=== PATIENT | male | born 1960 | race Caucasian/White ===

== ENCOUNTER 2020-06-19 09:27 | Inpatient (IN) | payer MEDICARE, OTHER ==
[~2020-06-19] VITALS: Ht 157.5 cm; Wt 60.3 kg
--- NOTE | 2020-06-19 10:01 | NUR ---
ble edema x 2 weeks, taking lasix x 10 days now. also c/o abdomional distension. On room air, breathing evenly and unlabored. Kept comfortable, will continue to monitor accordingly.
[2020-06-19 10:03] LABS: BASOPHILS # (AUTO) 0.1 /CMM (0.0-0.2); BASOPHILS % (AUTO) 0.4 % (0.0-2.0); EOSINOPHILS % (AUTO) 1.4 % (0.0-6.0); HEMATOCRIT 36 % (39-51); HEMOGLOBIN 11.7 g/dL (13.5-17.5); LYMPHOCYTES # (AUTO) 2.1 /CMM (0.8-4.8); MEAN CORPUSCULAR HGB CONC 33 g/dl (31.0-36.0); MEAN CORPUSCULAR VOLUME 104 fL (80-96); MONOCYTES # (AUTO) 1.9 /CMM (0.1-1.30); MONOCYTES % (AUTO) 10.6 % (2.0-12.0); NEUTROPHILS # (AUTO) 13.2 /CMM (1.8-8.9); NEUTROPHILS % (AUTO) 75.6 % (43.0-81.0); PLATELET COUNT (AUTO) 248 /CMM (150-450); RED BLOOD CELL COUNT(AUTO) 3.44 MIL/uL (4.5-6.0); WHITE BLOOD COUNT (AUTO) 17.5 K/uL (4.3-11.0)
[2020-06-19 10:14] LABS: ALANINE AMINOTRANSFERASE 24 U/L (12-78); ALBUMIN 2.3 g/dL (3.4-5.0); ALKALINE PHOSPHATASE 265 U/L (46-116); ASPARTATE AMINOTRANSFERASE 89 U/L (15-37); BILIRUBIN,DIRECT 1.1 mg/dL (0.0-0.2); BILIRUBIN,TOTAL 1.3 mg/dL (0.2-1.0); CALCIUM, SERUM 8.2 mg/dL (8.5-10.1); CARBON DIOXIDE 26 mmol/L (21-32); CHLORIDE 105 mmol/L (98-107); CREATININE 1.1 mg/dL (0.6-1.3); GLUCOSE 110 mg/dL (74-106); SODIUM SERUM 142 mmol/L (136-145); TOTAL PROTEIN, SERUM 7.5 g/dL (6.4-8.2); UREA NITROGEN, BLOOD 6 mg/dL (7-18)
[2020-06-19 10:15] LABS: POTASSIUM 2.4 mmol/L (3.5-5.1)
--- NOTE | 2020-06-19 10:27 | NUR ---
PANEL ON-CALL PAGED
[2020-06-19] MEDS ORDERED: CEFTRIAXONE 1GM BAG (ER ONLY) 50 ML IV ONE (10:29)
[2020-06-19] MEDS ORDERED: POTASSIUM CL. PREMIX PERIPHER. 200 ML ONE (10:29)
[2020-06-19] MEDS ORDERED: TRAZ150T75 PO (10:30)
[2020-06-19] MEDS ORDERED: OMEG1CAP55 PO (10:30)
[2020-06-19] MEDS ORDERED: MAGN400T26 PO (10:30)
[2020-06-19] MEDS ORDERED: FOLI0.4T6 PO (10:30)
[2020-06-19] MEDS ORDERED: CEFTRIAXONE 1GM BAG (ER ONLY) 1 GM/50 ML PIGGYBACK IV ONE (10:30)
[2020-06-19] MEDS: POTASSIUM CL. PREMIX PERIPHER. 50 ML IV SCH ×4 (10:30→14:13)
[2020-06-19] MEDS ORDERED: AMLO-213 PO (10:30)
[2020-06-19] MEDS ORDERED: FURO20TA4 PO (10:30)
[2020-06-19] MEDS ORDERED: MELO-105 PO (10:30)
[2020-06-19] MEDS ORDERED: ARIP5TAB59 PO (10:30)
[2020-06-19] MEDS ORDERED: POTA20TA83 PO (10:30)
--- NOTE | 2020-06-19 10:50 | NUR ---
MOVE SHEET SUBMITTED AND CALLED FOR TELE BED.
--- NOTE | 2020-06-19 10:55 | NUR ---
patient signed consent for ultrasound guided paracenthesis.
--- NOTE | 2020-06-19 11:01 | NUR ---
room 112-1
[2020-06-19] MEDS ORDERED: HYDROCODONE/APAP 5/325MG TABLET PO PRN (11:30)
[2020-06-19] MEDS ORDERED: ONDANSETRON HCL/PF 4 MG/2 ML VIAL IVP PRN (11:30)
[2020-06-19] MEDS ORDERED: MORPHINE SULFATE INJ 2 MG/ML DISP.SYRIN IV PRN (11:30)
[2020-06-19] MEDS ORDERED: MAGNESIUM HYDROXIDE 30 ML UDC PO PRN (11:30)
[2020-06-19] MEDS ORDERED: MAG HYDROX/AL HYDROX/SIMETH 30 ML UDC PO PRN (11:30)
[2020-06-19] MEDS ORDERED: ALBUMIN 25% 12.5 GM/50 ML BOTTLE IV ONE (11:30)
[2020-06-19] MEDS ORDERED: ACETAMINOPHEN 325 MG TABLET PO PRN (11:30)
[2020-06-19] MEDS ORDERED: ALBUMIN 25% 50 ML IV ONE (11:33)
--- NOTE | 2020-06-19 11:45 | NUR ---
s/p paracenthesis, body fluids sent to lab
--- NOTE | 2020-06-19 11:58 | NUR ---
LAB CALLED PT COVID RESULT NEGATIVE (-)
[2020-06-19 12:15] VITALS: BP 159/81
--- NOTE | 2020-06-19 12:17 | NUR ---
wheeled patient via gurney accompanied by RN and emt in no distress. RN assigned to patient at bedside to assume care.
[2020-06-19] MEDS: THIAMINE HCL 100 MG TABLET PO SCH (12:27)
[2020-06-19] MEDS: MULTIVITAMINS,THERAGRAN 1 UDTAB TABLET PO SCH (12:27)
[2020-06-19] MEDS: FOLIC ACID 1 MG TABLET PO SCH (12:27)
--- NOTE | 2020-06-19 12:30 | NUR ---
RN NOTE RECEIVED REPORT FROM TOM CARDONA. PATIENT IS CURRENTLY IN NO DISTRESS ON ROOM AIR. WILL CONTINUE TO MONITOR.
[2020-06-19 16:00] VITALS: BP 117/74
[2020-06-19] MEDS ORDERED: IOHEXOL-350 100 ML VIAL IV ONE (16:16)
[2020-06-19] MEDS ORDERED: IV NS 0.9% 0 ML IV ONE (16:17)
--- NOTE | 2020-06-19 16:32 | NUR ---
RN NOTE PATIENT IS REFUSING CT OF ABDOMEN PELVIS WWO CONTRAST. EXPLAINED PROCEDURE TO PATIENT AND THE BENEFITS OF HAVING IT PERFORMED. PATIENT STILL REFUSED.
--- NOTE | 2020-06-19 17:30 | NUR ---
RN NOTE UA COLLECTED. AWAITING LAB PRINT DEVELOPER AUTOMATIC.
--- NOTE | 2020-06-19 18:39 | NUR ---
RN CLOSING NOTE PATIENT IS CURRENTLY IN BED WITH HOB AT SEMI FOWLERS POSITION. PATIENT IS ON ROOM AIR WITH NO SIGNS OF LABORED BREATHING. PATIENT IS AOX4. LOWER EXTREMITY EDEMA AND RIGHT FOOT SKIN TEAR NOTED. LAC #18 AND RAC #18 ARE PATENT AND INTACT. BED IS LOCKED IN THE LOWEST POSITION, 3 GUARD RAILS RAISED, CALL REYES WITHIN REACH, AND ALL HOSPITAL SAFETY PRECAUTIONS ARE BEING FOLLOWED. ALL DUE MEDS GIVEN AND PATIENT REMAINED STABLE THROUGHOUT SHIFT. WILL ENDORSE TO GUARD CAPTAIN RN FOR OSITO.
[2020-06-19 20:00] VITALS: BP 100/57
[2020-06-19 20:33] LABS: BILIRUBIN,URINE SMALL (NEGATIVE); COLOR,URINE YELLOW (YELLOW); LEUKOCYTE ESTERASE ,URINE NEGATIVE (NEGATIVE); NITRITE, URINE NEGATIVE (NEGATIVE); PROTEIN,URINE NEGATIVE (NEGATIVE); UGLUCOSE NEGATIVE (NEGATIVE); UROBILINOGEN,URINE 0.2 EU/dL (0.2)
[2020-06-19 20:41] LABS: BACTERIA,URINE 3+ /HPF (None Seen); RBC,URINE 0-2 /HPF (0-2); SQUAMOUS EPITHELIAL CELL,UR Few /HPF (None Seen); WBC,URINE 0-2 /HPF (0-3)
[2020-06-19 20:42] LABS: URINE AMORPHOUS URATE Few /HPF (None Seen)
[2020-06-20] VITALS (7 sets, daily range): BP systolic 98–131; BP diastolic 58–75
[2020-06-20 06:18] LABS: BASOPHILS # (AUTO) 0.2 /CMM (0.0-0.2); BASOPHILS % (AUTO) 1.4 % (0.0-2.0); EOSINOPHILS % (AUTO) 2.4 % (0.0-6.0); HEMATOCRIT 34 % (39-51); HEMOGLOBIN 11.1 g/dL (13.5-17.5); LYMPHOCYTES # (AUTO) 1.8 /CMM (0.8-4.8); LYMPHOCYTES % (AUTO) 12.7 % (20.0-44.0); MEAN CORPUSCULAR HGB CONC 32 g/dl (31.0-36.0); MEAN CORPUSCULAR VOLUME 105 fL (80-96); MONOCYTES # (AUTO) 1.3 /CMM (0.1-1.30); MONOCYTES % (AUTO) 9.3 % (2.0-12.0); NEUTROPHILS # (AUTO) 10.2 /CMM (1.8-8.9); NEUTROPHILS % (AUTO) 74.2 % (43.0-81.0); PLATELET COUNT (AUTO) 219 /CMM (150-450); RED BLOOD CELL COUNT(AUTO) 3.25 MIL/uL (4.5-6.0); WHITE BLOOD COUNT (AUTO) 13.8 K/uL (4.3-11.0)
--- NOTE | 2020-06-20 07:45 | NUR ---
CLAY MINE CUTTING MACHINE OPERATOR NOTE PATIENT IN BED , PATIENT IS ON ROOM AIR WITH NO SIGNS OF LABORED BREATHING. PATIENT IS AOX4. LOWER EXTREMITY EDEMA ,KEEP ELEVATED TOLERATED, RT AC HL INTACT AND AND FLUSHED WELL . BED IS LOCKED IN THE LOWEST POSITION, 3, CALL REYES WITHIN REACH, AND ALL HOSPITAL SAFETY PRECAUTIONS IMPLEMENTED , CALL LIGHT WITHIN REACH
[2020-06-20 07:56] LABS: BILIRUBIN,DIRECT 1.1 mg/dL (0.0-0.2); BILIRUBIN,TOTAL 1.6 mg/dL (0.2-1.0); CALCIUM, SERUM 7.9 mg/dL (8.5-10.1); CREATININE 0.7 mg/dL (0.6-1.3); MAGNESIUM 1.6 mg/dL (1.8-2.4); PHOSPHORUS 2.2 mg/dL (2.5-4.9); TOTAL PROTEIN, SERUM 6.3 g/dL (6.4-8.2)
[2020-06-20 07:59] LABS: POTASSIUM 2.4 mmol/L (3.5-5.1)
--- NOTE | 2020-06-20 08:04 | NUR ---
WOUND CARE CONSULT: PT SEEN FOR RT FOOT HEALED AREA, PRESENT ON ADMISSION. PT STATES THAT HE PREVIOUSLY SCRATCHED HIS FOOT WITH HIS FINGERS. NO DRAINAGE, TENDERNESS OR ERYTHEMA NOTED. PT IS AMBULATORY AND CONTINENT. WILL SEE PRN.
[2020-06-20 08:06] LABS: THYROID STIMULATING HORMONE 2.245 uIU/mL (0.358-3.74)
[2020-06-20] MEDS: THIAMINE HCL 100 MG TABLET PO SCH (08:14)
[2020-06-20] MEDS: FOLIC ACID 1 MG TABLET PO SCH (08:14)
[2020-06-20] MEDS: MULTIVITAMINS,THERAGRAN 1 UDTAB TABLET PO SCH (08:14)
--- NOTE | 2020-06-20 08:56 | NUR ---
MS RN NOTE SPOKE WITH MILTON TERRY RN MINE BOSS NOTIFIED THAT K 2,4 NO NEW ORDER GIVEN AT THIS TIME
[2020-06-20] MEDS: POTASSIUM CHLORIDE 20 MEQ TAB.PRT.SR PO SCH ×2 (09:28→10:45)
[2020-06-20] MEDS ORDERED: TRAZODONE 50 MG TABLET PO PRN (09:30)
[2020-06-20] MEDS: ARIPIPRAZOLE 5 MG TABLET PO SCH (09:30)
[2020-06-20] MEDS: MELOXICAM 7.5 MG TABLET PO SCH (09:30)
[2020-06-20] MEDS: MAGNESIUM OXIDE 400 MG TABLET PO SCH ×2 (09:50→16:17)
[2020-06-20] MEDS: AMLODIPINE BESYLATE 10 MG TABLET PO SCH (09:57)
[2020-06-20] MEDS: FUROSEMIDE 40 MG TABLET PO SCH (10:12)
[2020-06-20] MEDS: SPIRONOLACTONE 25 MG TABLET PO SCH (10:12)
--- NOTE | 2020-06-20 10:13 | NUR ---
BIOFUELS PLANT OPERATIONS ENGINEER NOTE SPOKE WITH MILTON RN HEALTH AND PHYSICAL EDUCATION PROFESSOR TO CLARIFIED LASIX AND ALDACTONE PO MEDICATION STATED OK TO GIBE BOTH ,WILL F\U
--- NOTE | 2020-06-20 10:31 | NUR ---
MS RN NOTE KCL PO GIVEN ORDERED FOR K 2.4
--- NOTE | 2020-06-20 10:34 | NUR ---
MS SANTOS NOTE STRONGLY REFUSED TO DO CT ABDOMEN WILL F\U WITH Addendum: 06/20/20 at 1041 by ANGEL LAZCANO RN MILTON TERRY RN VP CONSTRUCTION NOTIFIED THAT REFUSED MOBIC AND KRISTI ALSO NOTIFIED THAT REFUSED CT ABDOMEN\ PEPSIS
[2020-06-20] MEDS: CEFTRIAXONE 1 G in IV D5W 50 ML IV SCH (10:47)
--- NOTE | 2020-06-20 11:27 | NUR ---
RN NOTE PER DR JEANETTE CHEN US ABDOMEN AWARE THAT PATIENT REFUSED CT ABDOMEN \PELVIS Addendum: 06/20/20 at 1225 by ANGEL LAZCANO RN informed to Minna gunn that patient has dry cough no new order given at this time
[2020-06-20] MEDS ORDERED: K PHOS NEUTRAL 250 MG TABLET PO ONE (12:30)
--- NOTE | 2020-06-20 12:30 | NUR ---
MS RN NOTE ABDOMINAL US DONE ORDERED
--- NOTE | 2020-06-20 15:00 | NUR ---
GEOTHERMAL OPERATIONS ENGINEER NOTE KURT SANTOS PASS WORKER FOR ONCOLOGIST AT BEDSIDE NOTIFIED THAT PATIENT REFUSED TO DO CT ABDOMEN \PELVIS AWARE THAT ABDOMEN STILL DISTENDED
--- NOTE | 2020-06-20 18:30 | NUR ---
MS RN NOTE ALL NEEDS ATTENDED, ABLE TO EAT DINNER , NOT IN DISTRESS
--- NOTE | 2020-06-20 19:43 | NUR ---
RN OPENING NOTE REC'D PT IN BED. RESTING. A/O X4. PT ON ROOM TOLERATING WELL. NO SOB OR RESP DISTRESS. PT IS ON MED SURG MONITORING. PT DENIES PAIN AT THIS TIME. LAC IV SITE INTACT, FLUSHED SALINE LOCK. ABDOMEN DISTENDED, BASELINE TO PT HX. ENCOURAGED TO USE URINAL. PT VERBALIZED UNDERSTANDING. ALL NEEDS ATTENDED AT THIS TIME. SAFETY MEASURES IN PLACE. HOB ELEVATED TOLERATED. SIDE RAILS UP X2, BED LOCKED IN LOWEST POSITION. CALL LIGHT WITHIN REACH. WILL CONT TO MONITOR.
--- NOTE | 2020-06-21 00:47 | NUR ---
RN NOTE PT IN BED, RESTING. NO DISTRESS NOTED. NEEDS ATTENDED AT THIS TIME. WILL CONTINUE TO MONITOR.
[2020-06-21 04:00] VITALS: BP 121/75
[2020-06-21 06:04] LABS: BASOPHILS # (AUTO) 0.1 /CMM (0.0-0.2); BASOPHILS % (AUTO) 0.7 % (0.0-2.0); EOSINOPHILS % (AUTO) 2.3 % (0.0-6.0); HEMATOCRIT 33 % (39-51); HEMOGLOBIN 10.7 g/dL (13.5-17.5); LYMPHOCYTES # (AUTO) 2.2 /CMM (0.8-4.8); LYMPHOCYTES % (AUTO) 16.7 % (20.0-44.0); MEAN CORPUSCULAR HGB CONC 32 g/dl (31.0-36.0); MEAN CORPUSCULAR VOLUME 105 fL (80-96); MONOCYTES # (AUTO) 1.3 /CMM (0.1-1.30); MONOCYTES % (AUTO) 10.2 % (2.0-12.0); NEUTROPHILS # (AUTO) 9.1 /CMM (1.8-8.9); NEUTROPHILS % (AUTO) 70.1 % (43.0-81.0); PLATELET COUNT (AUTO) 208 /CMM (150-450); RED BLOOD CELL COUNT(AUTO) 3.17 MIL/uL (4.5-6.0)
--- NOTE | 2020-06-21 06:35 | NUR ---
RN CLOSING NOTE NO SIGNIFICANT CHANGE IN PT CONDITION. STILL REMAINS ON ROOM AIR. TOLERATING WELL. BREATHING EVEN AND UNLABORED. NO DISTRESS NOTED. PT MOTIVATED TO SELF CARE, HYGIENE PRODUCTS PROVIDED. PT HAD FREQUENT TRIPS TO THE RESTROOM HE IS ON LASIX. GAIT STEADY. PT DENIES PAIN AT THIS TIME. ALL NEEDS ATTENDED AT THIS TIME. SAFETY MEASURES IN PLACE. BED LOCKED IN LOWEST POSITION, SIDE RAILS UP X2 CALL LIGHT WITHIN REACH. WILL CONT TO MONITOR UNTIL END OF SHIFT AND ENDORSE TO DAY SHIFT NURSE FOR CONTINUATION OF CARE.
[2020-06-21 07:00] LABS: CALCIUM, SERUM 7.6 mg/dL (8.5-10.1); CREATININE 0.8 mg/dL (0.6-1.3); MAGNESIUM 1.6 mg/dL (1.8-2.4); PHOSPHORUS 2.5 mg/dL (2.5-4.9); POTASSIUM 2.9 mmol/L (3.5-5.1)
--- NOTE | 2020-06-21 07:50 | NUR ---
RN OPENING NOTE PATIENT IS IN BED WITH HOB AT SEMI FOWLERS POSITION. PATIENT IS ON ROOM AIR WITH NO SIGNS OF LABORED BREATHING. PATIENT IS AOX4. PATIENT IS AMBULATORY. LAC#18 IS PATENT AND INTACT. BED IS LOCKED IN THE LOWEST POSITION, 3 GUARD RAILS RAISED, CALL REYES WITHIN REACH AND ALL HOSPITAL SAFETY PRECAUTIONS ARE BEING FOLLOWED. WILL CONTINUE TO MONITOR THROUGHOUT SHIFT.
[2020-06-21 08:07] LABS: IMMUNOGLOBULIN A, SERUM 650 mg/dL (90-386); IMMUNOGLOBULIN G, SERUM 1593 mg/dL (603-1613); IMMUNOGLOBULIN M, SERUM 170 mg/dL (20-172)
[2020-06-21] MEDS: FOLIC ACID 1 MG TABLET PO SCH (08:52)
[2020-06-21] MEDS: SPIRONOLACTONE 25 MG TABLET PO SCH (08:52)
[2020-06-21] MEDS: MULTIVITAMINS,THERAGRAN 1 UDTAB TABLET PO SCH (08:52)
[2020-06-21 08:53] VITALS: BP 126/89
[2020-06-21] MEDS: ARIPIPRAZOLE 5 MG TABLET PO SCH (08:53)
[2020-06-21] MEDS: MAGNESIUM OXIDE 400 MG TABLET PO SCH (08:53)
[2020-06-21] MEDS: AMLODIPINE BESYLATE 10 MG TABLET PO SCH (08:53)
[2020-06-21] MEDS: THIAMINE HCL 100 MG TABLET PO SCH (08:53)
[2020-06-21] MEDS: MELOXICAM 7.5 MG TABLET PO SCH ×2 (08:53→09:00)
[2020-06-21] MEDS: FUROSEMIDE 40 MG TABLET PO SCH (08:58)
[2020-06-21] MEDS ORDERED: FOLIC ACID 1 MG TABLET PO SCH (09:00)
[2020-06-21] MEDS ORDERED: POTASSIUM CHLORIDE 20 MEQ TAB.PRT.SR PO ONE (09:30)
[2020-06-21] MEDS: Magnesium 1GM/D5W 100ML PREMIX 100 ML IV SCH ×2 (10:00→10:26)
--- NOTE | 2020-06-21 10:31 | NUR ---
RN NOTE PATIENT REFUSED MAGNESIUM IV. EDUCATED PATIENT ON IMPORTANCE OF MEDICATION AND POTENTIAL SIDE EFFECTS. PATIENT STILL REFUSED.
--- NOTE | 2020-06-21 10:35 | NUR ---
RN NOTE PATIENT REFUSED PICTURE OF RIGHT FOOT FOR DC.
[2020-06-21] MEDS ORDERED: SPIR25TA6 PO (10:58)
[2020-06-21 11:07] LABS: *SPE A/G RATIO 0.7 (0.7-1.7); *SPE ALBUMIN 2.3 g/dL (2.9-4.4); *SPE ALPHA-1-GLOBULIN 0.2 g/dL (0.0-0.4); *SPE ALPHA-2-GLOBULIN 0.7 g/dL (0.4-1.0); *SPE BETA GLOBULIN 0.9 g/dL (0.7-1.3); *SPE GLOBULIN, TOTAL 3.4 g/dL (2.2-3.9); *SPE M-SPIKE Not Observed g/dL (Not Observed); *SPEGAMMA GLOBULIN 1.7 g/dL (0.4-1.8)
[2020-06-21] MEDS: CEFTRIAXONE 1 G in IV D5W 50 ML IV SCH (11:30)
--- NOTE | 2020-06-21 11:47 | NUR ---
RN NOTE PATIENT DISCHARGED IN STABLE CONDITION. LEFT WITH RELATIVE.
== END 2020-06-21 12:42 | disposition home or self-care (01) | DRG 441 ==
LOC: ER 09:33 → TELE1 11:05 → MEDSG1 06-20 08:18
PROVIDERS: ADMIT Nurse Practitioner Acute Care; ATTEND Nurse Practitioner Acute Care
PROC: 0W9G3ZZ Drainage of Peritoneal Cavity, Percutaneous Approach (ICD-10-PCS; principal; 2020-06-19)
DX: K72.90 Hepatic failure, unspecified without coma (principal); E43 Unspecified severe protein-calorie malnutrition; R18.8 Other ascites; D68.9 Coagulation defect, unspecified; N39.0 Urinary tract infection, site not specified; Z68.24 Body mass index [BMI] 24.0-24.9, adult; D72.829 Elevated white blood cell count, unspecified; E53.8 Deficiency of other specified B group vitamins; E78.5 Hyperlipidemia, unspecified; E87.6 Hypokalemia; F17.210 Nicotine dependence, cigarettes, uncomplicated; G47.00 Insomnia, unspecified; I10 Essential (primary) hypertension; D50.9 Iron deficiency anemia, unspecified; E88.09 Other disorders of plasma-protein metabolism, not elsewhere classified; F10.20 Alcohol dependence, uncomplicated; Y90.9 Presence of alcohol in blood, level not specified; R93.5 Abnormal findings on diagnostic imaging of other abdominal regions, including retroperitoneum; K74.60 Unspecified cirrhosis of liver; Z20.822 Contact with and (suspected) exposure to COVID-19; E83.42 Hypomagnesemia; E83.39 Other disorders of phosphorus metabolism
CPT/HCPCS: 36415; 71045-TC; 76700-TC; 76942-TC; 80048-TC; 80053-TC; 80061-TC; 80076-TC; 81001; 82105; 82728-TC; 82784; 83540-TC; 83735-TC; 84100-TC; 84155; 84165; 84443-TC; 84484-TC; 85025-TC; 85730-TC; 86334; 87040-TC; 87081-TC; 87086-TC; 89051-TC; 93970-TC; A6403; G0378; J0696; J3475; J3480; J7050; J7060; P9047; Q9967

== ENCOUNTER 2020-07-03 09:01 | Emergency (ER) | payer MEDICARE, OTHER ==
[~2020-07-03] VITALS: Ht 165.1 cm; Wt 83.9 kg
[~2020-07-03 09:01] MED LIST: AMLO-213 PO; ARIP5TAB59 PO; FOLI0.4T6 PO; FURO20TA4 PO; MAGN400T26 PO; MELO-105 PO; OMEG1CAP55 PO; POTA20TA83 PO; SPIR25TA6 PO; TRAZ150T75 PO
--- NOTE | 2020-07-03 09:12 | NUR ---
DR OHARA AT BEDSIDE FOR EVAL.
--- NOTE | 2020-07-03 09:30 | NUR ---
IV LINE STARTED BLOOD DRAWN AND SENT TO LAB.
[2020-07-03 09:36] LABS: BASOPHILS # (AUTO) 0.1 /CMM (0.0-0.2); BASOPHILS % (AUTO) 0.8 % (0.0-2.0); EOSINOPHILS % (AUTO) 0.4 % (0.0-6.0); HEMATOCRIT 39 % (39-51); HEMOGLOBIN 12.6 g/dL (13.5-17.5); LYMPHOCYTES % (AUTO) 5.2 % (20.0-44.0); MEAN CORPUSCULAR HGB CONC 33 g/dl (31.0-36.0); MEAN CORPUSCULAR VOLUME 104 fL (80-96); MONOCYTES # (AUTO) 1.6 /CMM (0.1-1.30); MONOCYTES % (AUTO) 8.6 % (2.0-12.0); PLATELET COUNT (AUTO) 378 /CMM (150-450); RED BLOOD CELL COUNT(AUTO) 3.73 MIL/uL (4.5-6.0); WHITE BLOOD COUNT (AUTO) 18.8 K/uL (4.3-11.0)
[2020-07-03 09:52] LABS: CALCIUM, SERUM 9.3 mg/dL (8.5-10.1); POTASSIUM 3.6 mmol/L (3.5-5.1)
[2020-07-03 09:56] LABS: ALBUMIN 2.8 g/dL (3.4-5.0); BILIRUBIN,TOTAL 1.5 mg/dL (0.2-1.0); TOTAL PROTEIN, SERUM 8.5 g/dL (6.4-8.2)
[2020-07-03] MEDS ORDERED: ERGO500014 PO (10:41)
[2020-07-03] MEDS ORDERED: VENL75CA62 PO (10:41)
[2020-07-03] MEDS ORDERED: SPIR25TA6 PO (10:41)
--- NOTE | 2020-07-03 10:45 | NUR ---
MOVE SHEET SUBMITTED AND CALLED FOR BED.
--- NOTE | 2020-07-03 11:11 | NUR ---
patient signed consent for guided paracenthesis
--- NOTE | 2020-07-03 11:39 | NUR ---
[facility] CALLED HORSE AND WAGON DRIVER PAGED.
--- NOTE | 2020-07-03 11:49 | NUR ---
engineer technician at bedside
--- NOTE | 2020-07-03 12:48 | NUR ---
PT ASSIGNED ROOM 324
--- NOTE | 2020-07-03 12:50 | NUR ---
s/p ultrasound guided paracenthesis with 5liters output.
[2020-07-03 13:05] VITALS: BP 122/71
--- NOTE | 2020-07-03 13:05 | NUR ---
Patient discharged to home in stable condition. Written and verbal after care instructions given. Patient verbalizes understanding of instruction.IV removed. Catheter intact and site benign. Pressure and 4x4 applied to site. No bleeding noted.
== END 2020-07-03 13:05 | disposition home or self-care (01) ==
LOC: ER 09:01
DX: K72.90 Hepatic failure, unspecified without coma (principal); R18.8 Other ascites; N28.9 Disorder of kidney and ureter, unspecified; I10 Essential (primary) hypertension; Z20.822 Contact with and (suspected) exposure to COVID-19
CPT/HCPCS: 36415; 76942-TC; 80048-TC; 80076-TC; 85025-TC; 85730-TC; 87081-TC; C9803

== ENCOUNTER 2020-07-18 07:44 | Inpatient (IN) | payer MEDICARE, OTHER ==
[~2020-07-18] VITALS: Ht 152.4 cm; Wt 73.0 kg
[~2020-07-18 07:44] MED LIST changes: -ARIP5TAB59 PO; +ERGO500014 PO; -MAGN400T26 PO; -MELO-105 PO; -OMEG1CAP55 PO; +VENL75CA62 PO
--- NOTE | 2020-07-18 07:54 | NUR ---
CAME HERE DUE TO ABDOMINAL DISCOMFORT SECONDARY TO ABDOMINAL DISTENSION DUE TO ASCITIS,LAST PARACENTESIS DONE 2 WEEKS AGO. AWAITING MD MOURA IN ER BED 4
--- NOTE | 2020-07-18 08:21 | NUR ---
SEEN BY DR JEAN,MARIA R ESTABLISHED,BLOOD DRAWN FOR LABS
[2020-07-18 08:25] LABS: BASOPHILS % (AUTO) 0.2 % (0.0-2.0); EOSINOPHILS % (AUTO) 0.7 % (0.0-6.0); HEMATOCRIT 46 % (39-51); HEMOGLOBIN 15.2 g/dL (13.5-17.5); LYMPHOCYTES # (AUTO) 1.8 /CMM (0.8-4.8); LYMPHOCYTES % (AUTO) 11.7 % (20.0-44.0); MEAN CORPUSCULAR HGB CONC 33 g/dl (31.0-36.0); MEAN CORPUSCULAR VOLUME 99 fL (80-96); MONOCYTES # (AUTO) 1.3 /CMM (0.1-1.30); MONOCYTES % (AUTO) 8.2 % (2.0-12.0); NEUTROPHILS # (AUTO) 12.2 /CMM (1.8-8.9); NEUTROPHILS % (AUTO) 79.2 % (43.0-81.0); PLATELET COUNT (AUTO) 272 /CMM (150-450); RED BLOOD CELL COUNT(AUTO) 4.64 MIL/uL (4.5-6.0); WHITE BLOOD COUNT (AUTO) 15.4 K/uL (4.3-11.0)
[2020-07-18 08:41] LABS: CALCIUM, SERUM 9.3 mg/dL (8.5-10.1); CARBON DIOXIDE 19 mmol/L (21-32); CHLORIDE 98 mmol/L (98-107); CREATININE 4.8 mg/dL (0.6-1.3); GLUCOSE 131 mg/dL (74-106); POTASSIUM 5.8 mmol/L (3.5-5.1); SODIUM SERUM 132 mmol/L (136-145); UREA NITROGEN, BLOOD 47 mg/dL (7-18)
[2020-07-18 08:46] LABS: ALANINE AMINOTRANSFERASE 25 U/L (12-78); ALBUMIN 2.7 g/dL (3.4-5.0); ALKALINE PHOSPHATASE 280 U/L (46-116); ASPARTATE AMINOTRANSFERASE 76 U/L (15-37); BILIRUBIN,DIRECT 0.3 mg/dL (0.0-0.2); BILIRUBIN,TOTAL 1.4 mg/dL (0.2-1.0); LIPASE 459 U/L (73-393); TOTAL PROTEIN, SERUM 8.8 g/dL (6.4-8.2)
[2020-07-18] MEDS ORDERED: CEFTRIAXONE 1GM BAG (ER ONLY) 50 ML IV ONE ×2 (09:00→09:10)
[2020-07-18] MEDS: IV NS 0.9% 1,000 ML BAG IV ONE ×2 (09:20→10:32)
--- NOTE | 2020-07-18 09:36 | NUR ---
covid negative per lab
--- NOTE | 2020-07-18 09:54 | NUR ---
NURSING SUP GAVE 304-2. SERG IS THE NURSE.
--- NOTE | 2020-07-18 10:20 | NUR ---
REPORT GIVEN TO YANCY RN FOR OSITO
--- NOTE | 2020-07-18 10:50 | NUR ---
RN ADMITTING NOTES PT TRANSPORTED BY LANE TO UNIT FROM ED AT THIS TIME. RECEIVED REPORT FROM TOM ESPINAL @ ED , AOX4. PT ABLE TO COMMUNICATE NEEDS. NO SOB NOTED, NO C//O OF PAIN AT THIS TIME, NO S/S OF ANY APPARENT DISTRESS NOTED. RESPIRATIONS EVEN AND UNLABORED, ACTIVE BOWEL SOUNDS AUSCULTATED THROUGHOUT, ABDOMEN IS DISTENDED AND NON VERBAL. SKIN IS INTACT, WARM TO TOUCH. CAPILLARY REFILL< 3SECONDS, PULSES PRESENT BILATERALLY, GOOD CIRCULATION NOTED. IV ACCESS NOTED IN LFA G#20, INTACT, PATENT AND FLUSHING WELL. PT'S BELONGINGS ACCOUNTED FOR, AND KEPT AT PT'S BEDSIDE PER PT REQUEST. ASPIRATION AND SAFETY PRECAUTIONS IN PLACE AND MAINTAINED AT ALL TIMES. BED IN LOWEST LOCKED POSITION, SIDE RAILS UPX2, TABLE AND CALL LIGHT WITHIN REACH. WILL CONTINUE WITH PLAN OF CARE Addendum: 07/18/20 at 1741 by SANDY HENLEY RN RN ADMITTING NOTES PT TRANSPORTED BY LANE TO UNIT FROM ED AT THIS TIME. RECEIVED REPORT FROM TOM ESPINAL @ ED , AOX4. PT ABLE TO COMMUNICATE NEEDS. NO SOB NOTED, NO C//O OF PAIN AT THIS TIME, NO S/S OF ANY APPARENT DISTRESS NOTED. RESPIRATIONS EVEN AND UNLABORED, ACTIVE BOWEL SOUNDS AUSCULTATED THROUGHOUT, ABDOMEN IS DISTENDED AND FIRM. SKIN IS INTACT, WARM TO TOUCH. CAPILLARY REFILL< 3SECONDS, PULSES PRESENT BILATERALLY, GOOD CIRCULATION NOTED. IV ACCESS NOTED IN LFA G#20, INTACT, PATENT AND FLUSHING WELL. PT'S BELONGINGS ACCOUNTED FOR, AND KEPT AT PT'S BEDSIDE PER PT REQUEST. ASPIRATION AND SAFETY PRECAUTIONS IN PLACE AND MAINTAINED AT ALL TIMES. BED IN LOWEST LOCKED POSITION, SIDE RAILS UPX2, TABLE AND CALL LIGHT WITHIN REACH. WILL CONTINUE WITH PLAN OF CARE
[2020-07-18] MEDS ORDERED: ACETAMINOPHEN 325 MG TABLET PO PRN (11:30)
[2020-07-18] MEDS ORDERED: HYDROCODONE/APAP 5/325MG TABLET PO PRN (11:30)
[2020-07-18] MEDS ORDERED: Z GUARD REMEDY 2 OZ OINT TP PRN (11:30)
[2020-07-18] MEDS ORDERED: IV NS 0.9% 1,000 ML IV PRN (11:30)
[2020-07-18] MEDS ORDERED: ONDANSETRON HCL/PF 4 MG/2 ML VIAL IVP PRN (11:30)
[2020-07-18 12:00] VITALS: BP 129/71
--- NOTE | 2020-07-18 12:31 | NUR ---
PT C/O ACHING HEADACHE OF 3/10 AT THIS TIME. PT NOTED GRASPING SITE. VITAL SIGNS, BP 129/71, HR 107, RR 18, T 97.5, SPO2 100% ON RA. PER PT REQUEST TYLENOL 650MG PO Q6HR PRN FOR PAIN ADMINISTERED PER ORDER. WILL CONTINUE TO MONITOR
[2020-07-18] MEDS ORDERED: SODIUM POLYSTYRENE SULFONATE 15 G/60 ML BOTTLE PO ONE (13:30)
[2020-07-18 15:51] LABS: BILIRUBIN,URINE SMALL (NEGATIVE); COLOR,URINE DARK YELLOW (YELLOW); LEUKOCYTE ESTERASE ,URINE NEGATIVE (NEGATIVE); NITRITE, URINE NEGATIVE (NEGATIVE); PH,URINE 5.5 (5.0-8.0); PROTEIN,URINE TRACE mg/dl (NEGATIVE); UGLUCOSE NEGATIVE (NEGATIVE); UROBILINOGEN,URINE 0.2 EU/dL (0.2)
[2020-07-18 16:00] VITALS: BP 120/80
[2020-07-18 16:03] LABS: HYALINE CASTS, URINE Few /LPF (None Seen)
[2020-07-18 16:04] LABS: BACTERIA,URINE Few /HPF (None Seen); SQUAMOUS EPITHELIAL CELL,UR Few /HPF (None Seen)
[2020-07-18 16:06] LABS: CREATININE, URINE 238.6 MG/DL (30.0-125.0); URINE SODIUM, RANDOM < 5 mmol/l (40-220)
[2020-07-18 16:06] LABS: CALCIUM, SERUM 8.5 mg/dL (8.5-10.1); CREATININE 4.2 mg/dL (0.6-1.3); POTASSIUM 3.6 mmol/L (3.5-5.1)
--- NOTE | 2020-07-18 18:36 | NUR ---
RN CLOSING NOTES PT AWAKE IN ROOM AT THIS TIME. PT REMAINED STABLE THROUGHOUT SHIFT. PAIN MANAGEMENT ADMINISTERED. ALL NEEDS MEDICATIONS, AND CARE ADMINISTERED ANTICIPATED PER ORDER.PT KEPT CLEAN AND DRY, SAFETY PRECAUTIONS IN PLACE AND MAINTAINED AT ALL TIMES. BED IN LOWEST LOCKED POSITION, HOB ELEVATED, SIDE RAILS UP X 2. CALL LIGHT AND TABLE WITHIN REACH. WILL ENDORSE TO SEASONAL SALES ASSOCIATE NURSE FOR OSITO
[2020-07-18 18:46] LABS: CALCIUM, SERUM 8.3 mg/dL (8.5-10.1); CREATININE 4.2 mg/dL (0.6-1.3); POTASSIUM 3.5 mmol/L (3.5-5.1)
--- NOTE | 2020-07-18 19:22 | NUR ---
RN MS NOTES PT RECEIVED AWAKE IN ROOM AT THIS TIME. NO PAIN NOTED OR REPORTED AT THIS TIME. PT ON ROOM AIR TOLERATING WELL. ALL NURSING NEEDS MET AT THIS TIME. SAFETY PRECAUTIONS IN PLACE AND MAINTAINED AT ALL TIMES. BED IN LOWEST LOCKED POSITION, HOB ELEVATED, SIDE RAILS UP X 2. CALL LIGHT AND TABLE WITHIN REACH. WILL CONTINUE TO MONITOR.
[2020-07-18 20:16] VITALS: BP 112/69
[2020-07-19 06:00] LABS: BASOPHILS # (AUTO) 0.2 /CMM (0.0-0.2); BASOPHILS % (AUTO) 1.2 % (0.0-2.0); EOSINOPHILS % (AUTO) 1.9 % (0.0-6.0); HEMATOCRIT 40 % (39-51); HEMOGLOBIN 12.8 g/dL (13.5-17.5); LYMPHOCYTES % (AUTO) 14.4 % (20.0-44.0); MEAN CORPUSCULAR HGB CONC 32 g/dl (31.0-36.0); MEAN CORPUSCULAR VOLUME 101 fL (80-96); MONOCYTES # (AUTO) 1.2 /CMM (0.1-1.30); MONOCYTES % (AUTO) 8.9 % (2.0-12.0); NEUTROPHILS % (AUTO) 73.6 % (43.0-81.0); PLATELET COUNT (AUTO) 207 /CMM (150-450); RED BLOOD CELL COUNT(AUTO) 3.94 MIL/uL (4.5-6.0); WHITE BLOOD COUNT (AUTO) 13.6 K/uL (4.3-11.0)
--- NOTE | 2020-07-19 06:11 | NUR ---
MS RN NOTES PT ASLEEP IN BED BUT EASILY WOKEN UP. NO PAIN NOTED OR REPORTED AT THIS TIME. PT ON ROOM AIR TOLERATING WELL. ALL NURSING NEEDS MET AT THIS THROUGHOUT THE SHIFT. SAFETY PRECAUTIONS IN PLACE AND MAINTAINED AT ALL TIMES. BED IN LOWEST LOCKED POSITION, HOB ELEVATED, SIDE RAILS UP X 2. CALL LIGHT AND TABLE WITHIN REACH. WILL ENDORSE CARE TO DAY SHIFT NURSE..
[2020-07-19 06:17] LABS: CALCIUM, SERUM 8.6 mg/dL (8.5-10.1); MAGNESIUM 2.3 mg/dL (1.8-2.4); PHOSPHORUS 5.5 mg/dL (2.5-4.9); POTASSIUM 3.4 mmol/L (3.5-5.1)
--- NOTE | 2020-07-19 07:05 | NUR ---
MSRN opening NOTES PT ASLEEP IN BED BUT EASILY WOKEN UP. NO PAIN NOTED OR REPORTED AT THIS TIME. PT ON ROOM AIR TOLERATING WELL. ALL Needs attended to. SAFETY PRECAUTIONS IN PLACE AND MAINTAINED AT ALL TIMES. BED IN LOWEST LOCKED POSITION, HOB ELEVATED, SIDE RAILS UP X 2. CALL LIGHT AND TABLE WITHIN REACH. WILL ENDORSE CARE TO DAY SHIFT NURSE..
[2020-07-19 07:08] LABS: THYROID STIMULATING HORMONE 1.194 uIU/mL (0.358-3.74)
[2020-07-19] MEDS: PANTOPRAZOLE 40 MG TABLET.DR PO SCH (07:43)
[2020-07-19 08:00] VITALS: BP 126/84
[2020-07-19] MEDS ORDERED: POTASSIUM CHLORIDE 20 MEQ TAB.PRT.SR PO ONE (08:30)
[2020-07-19 16:00] VITALS: BP 136/73
--- NOTE | 2020-07-19 18:30 | NUR ---
MSRN closing NOTES PT ASLEEP IN BED BUT EASILY WOKEN UP. NO PAIN NOTED OR REPORTED AT THIS TIME. PT ON ROOM AIR TOLERATING WELL. ALL Needs attended to. SAFETY PRECAUTIONS IN PLACE AND MAINTAINED AT ALL TIMES. BED IN LOWEST LOCKED POSITION, HOB ELEVATED, SIDE RAILS UP X 2. CALL LIGHT AND TABLE WITHIN REACH. CONSENT SIGNED FOR USG PARACENTIESIS TOMORROW 07/20
--- NOTE | 2020-07-19 19:45 | NUR ---
RN NOTES Received pt. sleeping but arousable, denies pain, not in distress, refused skin assessment at this time, pt. wants to sleep, call light within reach, siderailsupx2, will continue to monitor
[2020-07-19 20:00] VITALS: BP 121/70
--- NOTE | 2020-07-19 20:30 | NUR ---
RN NOTES PT. woke up and asked about his IV fluid- pt. refused his IV fluid, importance and benefits explained to the patient
[2020-07-19] MEDS: ZOLPIDEM TARTRATE 5 MG TABLET PO PRN (23:03)
--- NOTE | 2020-07-19 23:06 | NUR ---
RN NOTES pT. ASKED FOR SLEEPING PILL- aMBIEN 5 MG PO GIVEN ORDERED, V/S STABLE
[2020-07-20 06:06] LABS: BASOPHILS # (AUTO) 0.3 /CMM (0.0-0.2); BASOPHILS % (AUTO) 2.5 % (0.0-2.0); EOSINOPHILS % (AUTO) 2.8 % (0.0-6.0); HEMATOCRIT 40 % (39-51); HEMOGLOBIN 13.2 g/dL (13.5-17.5); LYMPHOCYTES # (AUTO) 1.9 /CMM (0.8-4.8); LYMPHOCYTES % (AUTO) 16.2 % (20.0-44.0); MEAN CORPUSCULAR HGB CONC 33 g/dl (31.0-36.0); MEAN CORPUSCULAR VOLUME 100 fL (80-96); MONOCYTES # (AUTO) 1.1 /CMM (0.1-1.30); MONOCYTES % (AUTO) 9.7 % (2.0-12.0); NEUTROPHILS # (AUTO) 8.1 /CMM (1.8-8.9); NEUTROPHILS % (AUTO) 68.8 % (43.0-81.0); PLATELET COUNT (AUTO) 209 /CMM (150-450); RED BLOOD CELL COUNT(AUTO) 4.02 MIL/uL (4.5-6.0); WHITE BLOOD COUNT (AUTO) 11.7 K/uL (4.3-11.0)
[2020-07-20 06:14] LABS: ALBUMIN 2.4 g/dL (3.4-5.0); BILIRUBIN,TOTAL 1.1 mg/dL (0.2-1.0); CALCIUM, SERUM 8.6 mg/dL (8.5-10.1); CREATININE 4.3 mg/dL (0.6-1.3); MAGNESIUM 2.1 mg/dL (1.8-2.4); PHOSPHORUS 5.4 mg/dL (2.5-4.9); POTASSIUM 3.8 mmol/L (3.5-5.1); TOTAL PROTEIN, SERUM 7.4 g/dL (6.4-8.2)
--- NOTE | 2020-07-20 06:42 | NUR ---
RN NOTES Sleeping but arousable, not in distress, denies pain, no SOB, call light within reach, siderailsupx2, pt. needs attended
--- NOTE | 2020-07-20 07:22 | NUR ---
MSRN opening NOTES PT ASLEEP IN BED BUT EASILY WOKEN UP. NO PAIN NOTED OR REPORTED AT THIS TIME. PT ON ROOM AIR TOLERATING WELL. ALL Needs attended to. SAFETY PRECAUTIONS IN PLACE AND MAINTAINED AT ALL TIMES. PT REFUSED IV FLUIDS WHEN OFFERED , EXPLAINED RISKS AND BENEFITS OF IV FLUIDS AND REFUSAL. BED IN LOWEST LOCKED POSITION, HOB ELEVATED, SIDE RAILS UP X 2. CALL LIGHT AND TABLE WITHIN REACH.
[2020-07-20] MEDS: PANTOPRAZOLE 40 MG TABLET.DR PO SCH (07:28)
--- NOTE | 2020-07-20 07:44 | NUR ---
RN NOTE MORNING VITALS TAKEN , O2 SAT 91% , OFFERED O2 VIA NC BUT PT REFUSED.
[2020-07-20 08:00] VITALS: BP 136/86
[2020-07-20 08:01] VITALS: BP 136/86
[2020-07-20 16:00] VITALS: BP 120/78
[2020-07-20] MEDS: ALBUMIN 25% 25 GM in PREMIX 1 EA IV SCH ×2 (16:07→20:37)
--- NOTE | 2020-07-20 19:45 | NUR ---
RN NOTES Received pt. awake on bed, a/ox4, denies pain, no SOB, abdominal distended -S/P Paracentesis, call light within reach, siderailsupx2, continue to monitor
--- NOTE | 2020-07-20 22:00 | NUR ---
RN NOTES IV got infiltrated, pt refused to have another IV access, benefits and importance was explained to the patient, pt. still refusing
[2020-07-20] MEDS: ZOLPIDEM TARTRATE 5 MG TABLET PO PRN (22:30)
--- NOTE | 2020-07-20 22:30 | NUR ---
RN NOTES pt. asked for sleeping pill- Ambien 5mg po given as ordered, V/S stable
[2020-07-21] MEDS: ALBUMIN 25% 25 GM in PREMIX 1 EA IV SCH ×3 (03:00→12:38)
--- NOTE | 2020-07-21 03:00 | NUR ---
RN NOTES Albumin 25% was not given, patient refused to have a new IV access, importance and benefits of this medication was explained to the patient
--- NOTE | 2020-07-21 06:46 | NUR ---
RN NOTES sleeping but arousable, still refusing to have a new IV access, pt doesn't want me to remove the old one, call light within reach, siderailsupx2, pt. needs attended
[2020-07-21 06:55] LABS: CALCIUM, SERUM 8.3 mg/dL (8.5-10.1); POTASSIUM 3.4 mmol/L (3.5-5.1)
--- NOTE | 2020-07-21 07:05 | NUR ---
MS RN OPENING NOTE RECEIVED PATIENT IN BED. A/O X4. ON ROOM AIR, TOLERATING WELL. NO SOB NOTED. IN NO APPARENT DISTRESS. DENIES ANY PAIN OR DISCOMFORT AT THIS TIME. IV ACCESS ON L FA #20 G, APPARENTLY IV IS NOT INTACT AND PATENT. IV INSERTION TO FOLLOW. SAFETY MEASURES MAINTAINED. BED IN LOWEST POSITION, BRAKES LOCKED. SIDE RAILS UP X2. CALL LIGHT WITHIN REACH. WILL CONTINUE PLAN OF CARE.
[2020-07-21] MEDS: PANTOPRAZOLE 40 MG TABLET.DR PO SCH (07:49)
[2020-07-21 08:00] VITALS: BP 94/62
--- NOTE | 2020-07-21 08:12 | NUR ---
MS RN NOTE L FA IV ACCESS REMOVED. INSERTED AN NEW IV ACCESS ON R HAND #22 G, INTACT AND PATENT.
[2020-07-21] MEDS ORDERED: POTASSIUM CHLORIDE 20 MEQ TAB.PRT.SR PO ONE (09:00)
--- NOTE | 2020-07-21 12:20 | NUR ---
MS R NOTE TEXTED JENNIFER MCCORD NP REGARDING CLARIFICATION OF ALBUMIN ORDER. GAVE ALBUMIN 25 MG AT 0855 THEN AT 1137 THERE'S A NEW ORDER FOR ALBUMIN 25 MG THAT IS DUE AT 1200. HE SAID TO "CONTINUE SCHEDULED".
[2020-07-21] MEDS ORDERED: NEPRO VAN 237 ML CAN PO PRN (14:00)
[2020-07-21] MEDS: OCTREOTIDE 50 MCG/ML AMPUL SQ SCH ×2 (15:16→17:48)
[2020-07-21 16:00] VITALS: BP 94/62
[2020-07-21] MEDS: MIDODRINE HCL (5MG) 5 MG TABLET PO SCH (16:26)
--- NOTE | 2020-07-21 18:03 | NUR ---
MS RN CLOSING NOTE PATIENT IN BED. A/O X4. ON ROOM AIR, SATURATING WELL AT 95%. NO SOB NOTED. NO S/S OF RESPIRATORY DISTRESS. NO REPORTS OF ANY PAIN OR DISCOMFORT AT THIS TIME. IV ACCESS ON R HAND #22 G, INTACT AND PATENT. PT HAVING MULTIPLE EPISODES OF DIARRHEA. OCTREOTIDE GIVEN ORDERED. BSC AT THE BEDSIDE. ALL DUE MEDS GIVEN ORDERED. ABLE TO MAKE NEEDS KNOWN. SAFETY MEASURES MAINTAINED. BED IN LOWEST POSITION, BRAKES LOCKED. SIDE RAILS UP X2. CALL LIGHT WITHIN REACH. WILL ENDORSE CONTINUITY OF CARE TO ONCOMING SHIFT.
--- NOTE | 2020-07-21 19:52 | NUR ---
MS/TELE/RN PATIENT IS AWAKE, ALERT, COMFORTABLE, NO C/O PAIN, NO DISTRESS NOTED, CALL LIGHT IN REACH. FALL PRECAUTIONS PER PROTOCOL.WILL MONITOR.
[2020-07-21 20:00] VITALS: BP 98/18
[2020-07-21] MEDS: ZOLPIDEM TARTRATE 5 MG TABLET PO PRN (21:11)
--- NOTE | 2020-07-21 21:33 | NUR ---
MS/TELE/RN C/O COUGHING, OBTAINED ORDER OF ROBITUSSIN DM 5 ML PO Q 4 HOURS PRN. ORDER CARRIED OUT.
[2020-07-21] MEDS: GUAIFENESIN/D-METHORPHAN HB 5 ML UDC PO PRN (22:05)
[2020-07-22] MEDS: ALBUMIN 25% 25 GM in PREMIX 1 EA IV SCH (00:38)
--- NOTE | 2020-07-22 01:15 | NUR ---
MS/TELE/RN PATIENT IS SLEEPING, APPEAR COMFORTABLE, NO SIGNS OF DISTRESS NOTED, CALL LIGHT IN REACH, WILL CONTINUE TO MONITOR.
--- NOTE | 2020-07-22 06:10 | NUR ---
MS/TELE/RN PATIENT IS STILL SLEEPING AT THIS TIME, APPEAR COMFORTABLE, NO SIGNS OF DISTRESS NOTED, CALL LIGHT IN REACH, ALL NEEDS ATTENDED AT THIS TIME, WILL CONTINUE TO MONITOR.
[2020-07-22 06:11] LABS: CALCIUM, SERUM 8.5 mg/dL (8.5-10.1); POTASSIUM 3.3 mmol/L (3.5-5.1)
--- NOTE | 2020-07-22 07:05 | NUR ---
MS TOM OPENING NOTE RECEIVED PATIENT IN BED. A/O X4. ON ROOM AIR, TOLERATING WELL. NO SOB NOTED. NO S/S OF RESPIRATORY DISTRESS. VERBALIZING GENERALIZED PAIN, 09/26. IV ACCESS ON L FA #20 G, INTACT AND PATENT. SAFETY MEASURES MAINTAINED. BED IN LOWEST POSITION, BRAKES LOCKED. SIDE RAILS UP X2. CALL LIGHT WITHIN REACH. WILL CONTINUE PLAN OF CARE. Addendum: 07/22/20 at 1812 by ELOISE ELI RN R HAND #22 G
[2020-07-22 08:00] VITALS: BP 99/59
[2020-07-22] MEDS: MIDODRINE HCL (5MG) 5 MG TABLET PO SCH ×2 (08:12→17:06)
[2020-07-22] MEDS: OCTREOTIDE 50 MCG/ML AMPUL SQ SCH ×3 (08:13→17:05)
[2020-07-22] MEDS: PANTOPRAZOLE 40 MG TABLET.DR PO SCH (08:13)
[2020-07-22 16:00] VITALS: BP 117/71
--- NOTE | 2020-07-22 18:10 | NUR ---
MS RN CLOSING NOTE PATIENT RESTING IN BED. A/O X4. ON ROOM AIR, TOLERATING WELL. NO SOB NOTED. NO S/S OF RESPIRATORY DISTRESS. BREATHING IS EVEN AND UNLABORED. NO REPORTS OF PAIN OR DISCOMFORT AT THIS TIME. IV ACCESS ON R HAND #22 G, INTACT AND PATENT. SAFETY MEASURES MAINTAINED. BED IN LOWEST POSITION, BRAKES LOCKED. SIDE RAILS UP X2. CALL LIGHT WITHIN REACH. WILL ENDORSE CONTINUITY OF CARE TO ONCOMING SHIFT.
--- NOTE | 2020-07-22 19:39 | NUR ---
MS/TELE/RN RECEIVED PATIENT SLEEPING, APPEAR COMFORTABLE, NO SIGNS OF DISTRESS NOTED, CALL LIGHT IN REACH. WILL MONITOR.
[2020-07-22 20:00] VITALS: BP 103/62
[2020-07-23] VITALS: BP 126/82
[2020-07-23 04:00] VITALS: BP 121/70
[2020-07-23 06:12] LABS: BASOPHILS # (AUTO) 0.2 /CMM (0.0-0.2); BASOPHILS % (AUTO) 1.4 % (0.0-2.0); EOSINOPHILS % (AUTO) 3.4 % (0.0-6.0); HEMATOCRIT 38 % (39-51); HEMOGLOBIN 12.4 g/dL (13.5-17.5); LYMPHOCYTES # (AUTO) 2.4 /CMM (0.8-4.8); LYMPHOCYTES % (AUTO) 16.9 % (20.0-44.0); MEAN CORPUSCULAR HGB CONC 32 g/dl (31.0-36.0); MEAN CORPUSCULAR VOLUME 101 fL (80-96); MONOCYTES # (AUTO) 1.9 /CMM (0.1-1.30); NEUTROPHILS # (AUTO) 9.4 /CMM (1.8-8.9); NEUTROPHILS % (AUTO) 65.3 % (43.0-81.0); PLATELET COUNT (AUTO) 173 /CMM (150-450); WHITE BLOOD COUNT (AUTO) 14.3 K/uL (4.3-11.0)
[2020-07-23 07:00] LABS: ALBUMIN 2.6 g/dL (3.4-5.0); BILIRUBIN,TOTAL 0.8 mg/dL (0.2-1.0); CALCIUM, SERUM 8.4 mg/dL (8.5-10.1); CREATININE 3.9 mg/dL (0.6-1.3); MAGNESIUM 1.9 mg/dL (1.8-2.4); PHOSPHORUS 4.2 mg/dL (2.5-4.9); POTASSIUM 3.5 mmol/L (3.5-5.1); TOTAL PROTEIN, SERUM 6.4 g/dL (6.4-8.2)
[2020-07-23 08:00] VITALS: BP 100/62
--- NOTE | 2020-07-23 08:00 | NUR ---
RN OPENING NOTE RECEIVED PATIENT IN BED, AO X 4, ABLE TO RESPONDS ALL STIMULI. SKIN IS WARM TO TOUCH KEEP CLEAN/DRY, INTACT IV SITE. RESPIRATORY EVEN AND UNLABORED IN ROOM AIR, NO DISTRESS OBSERVED. KEPT ELEVATED HOB FOR ENSURE AIRWAY AND ASPIRATION PRECAUTION, ALSO LOWEST BED POSITION FOE SAFETY. CALL LIGHT WITHIN REACH, WILL CONTINUE TO MONITOR.
[2020-07-23] MEDS: MIDODRINE HCL (5MG) 5 MG TABLET PO SCH ×2 (09:13→17:35)
[2020-07-23] MEDS: OCTREOTIDE 50 MCG/ML AMPUL SQ SCH ×3 (09:13→17:00)
[2020-07-23] MEDS: PANTOPRAZOLE 40 MG TABLET.DR PO SCH (09:13)
[2020-07-23 16:00] VITALS: BP 119/76
--- NOTE | 2020-07-23 17:42 | NUR ---
RN CLOSING NOTE PATIENT RESTING IN BED, REMAINS AO X 4, DOES NO APPEARS DISTRESS OR DISCOMFORT. SKIN IS WARM TOUCH, KEEP CLEAN/DRY. RESPIRATORY EVEN AND UNLABORED IN ROOM AIR O2SAT 97%. PATIENT REFUSED MD YONAS MADE AWARE. KEPT ELEVATED HOB FOR ENSURE AIRWAY AND ASPIRATION PRECAUTION, ALSO LOWEST BED POSITION FOR SAFETY. CALL LIGHT WITHIN REACH, WILL ENDORSE SOFTWARE PRODUCT SPECIALIST.
--- NOTE | 2020-07-23 19:21 | NUR ---
MS RN NOTES PATIENT RESTING IN BED, REMAINS AO X 4, DOES NO APPEAR DISTRESS OR IN DISCOMFORT. SKIN IS WARM TOUCH. RESPIRATORY EVEN AND UNLABORED IN ROOM AIR O2SAT 97%. KEPT ELEVATED HOB FOR ENSURE AIRWAY AND ASPIRATION PRECAUTION, HAS A RIGHT HAND 22 G SL NO SIGNS OF REDNESS SWELLING OR PAIN AT SIGN FLUSHING WELL. LOWEST BED POSITION FOR SAFETY. CALL LIGHT WITHIN REACH, WILL CONTINUE TO MONITOR.
[2020-07-23 20:00] VITALS: BP 98/55
[2020-07-23] MEDS: GUAIFENESIN/D-METHORPHAN HB 5 ML UDC PO PRN (20:19)
[2020-07-23] MEDS: ZOLPIDEM TARTRATE 5 MG TABLET PO PRN (21:53)
[2020-07-24 05:53] LABS: BASOPHILS # (AUTO) 0.4 /CMM (0.0-0.2); BASOPHILS % (AUTO) 2.7 % (0.0-2.0); EOSINOPHILS % (AUTO) 3.4 % (0.0-6.0); HEMATOCRIT 40 % (39-51); LYMPHOCYTES # (AUTO) 2.8 /CMM (0.8-4.8); LYMPHOCYTES % (AUTO) 22.1 % (20.0-44.0); MEAN CORPUSCULAR HGB CONC 33 g/dl (31.0-36.0); MEAN CORPUSCULAR VOLUME 100 fL (80-96); MONOCYTES # (AUTO) 1.9 /CMM (0.1-1.30); MONOCYTES % (AUTO) 14.6 % (2.0-12.0); NEUTROPHILS # (AUTO) 7.4 /CMM (1.8-8.9); NEUTROPHILS % (AUTO) 57.2 % (43.0-81.0); PLATELET COUNT (AUTO) 177 /CMM (150-450); RED BLOOD CELL COUNT(AUTO) 3.96 MIL/uL (4.5-6.0); WHITE BLOOD COUNT (AUTO) 12.9 K/uL (4.3-11.0)
--- NOTE | 2020-07-24 06:34 | NUR ---
MS RN NOTES PATIENT RESTING IN BED, REMAINS AO X 4, DOES NO APPEAR DISTRESS OR IN DISCOMFORT. RESPIRATORY EVEN AND UNLABORED IN ROOM TOLERATING WELL. HOB KEPT ELEVATED TO ENSURE AIRWAY AND ASPIRATION PRECAUTION, HAS A RIGHT HAND 22 G SL NO SIGNS OF REDNESS SWELLING OR PAIN AT SIGN FLUSHING WELL. LOWEST BED POSITION FOR SAFETY. ALL NURSING NEEDS MET.CALL LIGHT WITHIN REACH, WILL ENDORSE CARE TO DAY SHIFT NURSE.
--- NOTE | 2020-07-24 07:10 | NUR ---
MS RN OPENING NOTES PATIENT RESTING IN BED, REMAINS AO X 4, DOES NO APPEAR DISTRESS OR IN DISCOMFORT. RESPIRATIONS EVEN AND UNLABORED IN ROOM TOLERATING WELL. HOB KEPT ELEVATED TO ENSURE AIRWAY AND ASPIRATION PRECAUTION, HAS A RIGHT HAND 22 G SL NO SIGNS OF REDNESS SWELLING OR PAIN AT SIGN FLUSHING WELL. LOWEST BED POSITION FOR SAFETY. ALL NURSING NEEDS MET.CALL LIGHT WITHIN EASY REACH AND ANSWERED PROPMTLY
[2020-07-24 07:24] LABS: CALCIUM, SERUM 8.3 mg/dL (8.5-10.1); POTASSIUM 3.3 mmol/L (3.5-5.1)
[2020-07-24] MEDS: MIDODRINE HCL (5MG) 5 MG TABLET PO SCH ×2 (08:05→16:18)
[2020-07-24] MEDS: PANTOPRAZOLE 40 MG TABLET.DR PO SCH (08:05)
[2020-07-24] MEDS: OCTREOTIDE 50 MCG/ML AMPUL SQ SCH ×3 (10:29→16:17)
[2020-07-24 16:00] VITALS: BP 107/78
--- NOTE | 2020-07-24 18:15 | NUR ---
MS RN CLOSING NOTES PATIENT RESTING IN BED, REMAINS AO X 4, DOES NO APPEAR DISTRESS OR IN DISCOMFORT. RESPIRATIONS EVEN AND UNLABORED IN ROOM TOLERATING WELL. HOB KEPT ELEVATED TO ENSURE AIRWAY AND ASPIRATION PRECAUTION, HAS A RIGHT HAND 22 G SL NO SIGNS OF REDNESS SWELLING OR PAIN AT SIGN FLUSHING WELL. LOWEST BED POSITION FOR SAFETY. ALL NURSING NEEDS MET.CALL LIGHT WITHIN EASY REACH AND ANSWERED PROPMTLY
--- NOTE | 2020-07-24 19:15 | NUR ---
RN OPENING NOTE PATIENT IN BED, EYES CLOSED. EASILY AROUSED. PATIENT IS PASHTO SPEAKING, ABLE TO MAKE NEEDS KNOWN. R HAND 22 G PATENT AND INTACT. BREATHING EVEN AND UNLABORED, TOLERATING RA WITH O2 SAT BETWEEN 94-95%. SAFETY MEASURES IN PLACE: BED IN LOCKED AND LOWEST POSITION, CALL LIGHT WITHIN REACH, SIDE RAILS UP. ENCOURAGED PATIENT TO CALL IF IN NEED. WILL MONITOR PATIENT CLOSELY.
[2020-07-24 20:00] VITALS: BP 95/55
[2020-07-24 22:00] VITALS: BP 96/55
[2020-07-25 06:10] LABS: BASOPHILS # (AUTO) 0.3 /CMM (0.0-0.2); BASOPHILS % (AUTO) 2.5 % (0.0-2.0); EOSINOPHILS % (AUTO) 2.2 % (0.0-6.0); HEMATOCRIT 40 % (39-51); HEMOGLOBIN 12.8 g/dL (13.5-17.5); LYMPHOCYTES # (AUTO) 2.4 /CMM (0.8-4.8); LYMPHOCYTES % (AUTO) 19.9 % (20.0-44.0); MEAN CORPUSCULAR HGB CONC 32 g/dl (31.0-36.0); MEAN CORPUSCULAR VOLUME 100 fL (80-96); MONOCYTES # (AUTO) 1.9 /CMM (0.1-1.30); MONOCYTES % (AUTO) 15.3 % (2.0-12.0); NEUTROPHILS # (AUTO) 7.3 /CMM (1.8-8.9); NEUTROPHILS % (AUTO) 60.1 % (43.0-81.0); PLATELET COUNT (AUTO) 173 /CMM (150-450); RED BLOOD CELL COUNT(AUTO) 3.97 MIL/uL (4.5-6.0); WHITE BLOOD COUNT (AUTO) 12.1 K/uL (4.3-11.0)
[2020-07-25 06:48] LABS: ALBUMIN 2.4 g/dL (3.4-5.0); BILIRUBIN,TOTAL 1.2 mg/dL (0.2-1.0); CALCIUM, SERUM 8.2 mg/dL (8.5-10.1); CREATININE 3.9 mg/dL (0.6-1.3); MAGNESIUM 1.6 mg/dL (1.8-2.4); PHOSPHORUS 4.2 mg/dL (2.5-4.9); POTASSIUM 3.2 mmol/L (3.5-5.1); TOTAL PROTEIN, SERUM 6.3 g/dL (6.4-8.2)
--- NOTE | 2020-07-25 06:54 | NUR ---
RN CLOSING NOTE PATIENT IN BED, EYES CLOSED. EASILY AWAKENED. ABLE TO MAKE NEEDS KNOWN. BREATHING EVEN AND UNLABORED, STILL TOLERATING RA . SAFETY MEASURES MAINTAINED. BED IN LOCKED AND LOWEST POSITION, CALL LIGHT WITHIN REACH, SIDE RAILS UP. ALL NEEDS MET AND ATTENDED. WILL ENDORSE TO DAY SHIFT NURSE FOR OSITO.
[2020-07-25 08:00] VITALS: BP 120/80
[2020-07-25 08:24] VITALS: BP 120/80
[2020-07-25] MEDS: MIDODRINE HCL (5MG) 5 MG TABLET PO SCH (08:24)
[2020-07-25] MEDS: PANTOPRAZOLE 40 MG TABLET.DR PO SCH (08:24)
[2020-07-25] MEDS: OCTREOTIDE 50 MCG/ML AMPUL SQ SCH (08:25)
[2020-07-25 09:13] LABS: EOSINOPHILS % (MANUAL) 7 % (0-4); LYMPHOCYTES % (MANUAL) 11 % (16-48); MONOCYTES % (MANUAL) 14 % (0-11.0); NEUTROPHILS % (MANUAL) 68 (42-76)
--- NOTE | 2020-07-25 10:32 | NUR ---
RN MS NOTE PT REQUESTED TO LEAVE AMA , FORM PROVIDED AND PT SIGNED AMA FORM. INSTRUCTED PT ON RISKD OF LEAVING AMA AND PT VERBALIZED UNDERSTANDING SAYING HE WILL RETURN TO ER IF ANY COMPLICATIONS ARISE. PT LEFT IN A HURRY , LEFT ETHNIC ORIGINS TEACHER IN ROOM, PLACED IN A SMALL BAG WITH PT FACE SHEET SHOULD HE RETURN FOR IT. IV LINE SAFELY REMOVED AND PT ESCORTED DOWN TO HOSPITAL LOBBY TO BE PICKED UP BY PRIVATE CAR.
== END 2020-07-25 09:40 | disposition left against medical advice (07) | DRG 432 ==
LOC: ER 07:48 → MED 10:16
PROVIDERS: ATTEND Student in an Organized Health Care Education/Training Program
PROC: 0W9G3ZZ Drainage of Peritoneal Cavity, Percutaneous Approach (ICD-10-PCS; principal; 2020-07-20)
DX: K74.60 Unspecified cirrhosis of liver (principal); E43 Unspecified severe protein-calorie malnutrition; K76.7 Hepatorenal syndrome; R18.8 Other ascites; E87.1 Hypo-osmolality and hyponatremia; E87.2 Acidosis; J90 Pleural effusion, not elsewhere classified; N17.9 Acute kidney failure, unspecified; Z20.822 Contact with and (suspected) exposure to COVID-19; I25.10 Atherosclerotic heart disease of native coronary artery without angina pectoris; E78.5 Hyperlipidemia, unspecified; E87.5 Hyperkalemia; E86.9 Volume depletion, unspecified; E87.6 Hypokalemia; I10 Essential (primary) hypertension; E88.09 Other disorders of plasma-protein metabolism, not elsewhere classified; Z68.31 Body mass index [BMI] 31.0-31.9, adult; E80.6 Other disorders of bilirubin metabolism
CPT/HCPCS: 36415; 71045-TC; 76770-TC; 76942-TC; 80048-TC; 80053-TC; 80061-TC; 80076-TC; 81001; 82570-TC; 83605-TC; 83690-TC; 83735-TC; 84100-TC; 84300-TC; 84443-TC; 84484-TC; 85025-TC; 85610-TC; 86704; 86705; 86706; 86803; 87040-TC; 87081-TC; 87340; A4216; C9803; G0378; J0696; J2354; J7030; P9047

== ENCOUNTER 2020-07-29 07:39 | Inpatient (IN) | payer MEDICARE, OTHER ==
[~2020-07-29] VITALS: Ht 157.5 cm; Wt 49.9 kg
[~2020-07-29 07:39] MED LIST changes: -ERGO500014 PO; +ERGO500093 PO
--- NOTE | 2020-07-29 07:55 | NUR ---
BIB SELF C/O ABDOMINAL PAIN FOR 1 MONTH. RATES PAIN 10. AOX4. BREATHING AND RESPIRATION UNLABORED. STABLE ON RA. PATIENT PLACED ON MONITOR
--- NOTE | 2020-07-29 08:25 | NUR ---
INSERTED A LAC G#20, GOOD BLOOD RETURN NOTED, INTACT, PATENT AND FLUSHING WELL. PT TOLERATED WELL
[2020-07-29 08:36] LABS: BASOPHILS # (AUTO) 0.1 /CMM (0.0-0.2); EOSINOPHILS % (AUTO) 2.4 % (0.0-6.0); HEMATOCRIT 40 % (39-51); HEMOGLOBIN 13.2 g/dL (13.5-17.5); LYMPHOCYTES # (AUTO) 2.5 /CMM (0.8-4.8); LYMPHOCYTES % (AUTO) 19.2 % (20.0-44.0); MEAN CORPUSCULAR HGB CONC 33 g/dl (31.0-36.0); MEAN CORPUSCULAR VOLUME 99 fL (80-96); MONOCYTES # (AUTO) 1.7 /CMM (0.1-1.30); MONOCYTES % (AUTO) 12.8 % (2.0-12.0); NEUTROPHILS # (AUTO) 8.5 /CMM (1.8-8.9); NEUTROPHILS % (AUTO) 64.6 % (43.0-81.0); PLATELET COUNT (AUTO) 250 /CMM (150-450); RED BLOOD CELL COUNT(AUTO) 4.04 MIL/uL (4.5-6.0); WHITE BLOOD COUNT (AUTO) 13.1 K/uL (4.3-11.0)
[2020-07-29 08:39] LABS: CALCIUM, SERUM 8.6 mg/dL (8.5-10.1); CREATININE 3.2 mg/dL (0.6-1.3); POTASSIUM 3.3 mmol/L (3.5-5.1)
[2020-07-29 08:45] LABS: ALBUMIN 2.7 g/dL (3.4-5.0); BILIRUBIN,DIRECT 0.5 mg/dL (0.0-0.2); BILIRUBIN,TOTAL 0.9 mg/dL (0.2-1.0); TOTAL PROTEIN, SERUM 7.8 g/dL (6.4-8.2)
--- NOTE | 2020-07-29 08:53 | NUR ---
COVID SWAB DONE AND SENT TO THE LAB
--- NOTE | 2020-07-29 10:17 | NUR ---
GOT BED 326-1
[2020-07-29] MEDS ORDERED: CEFTRIAXONE 1 G in IV D5W 50 ML IV STA (10:30)
[2020-07-29] MEDS ORDERED: CEFTRIAXONE 1GM BAG (ER ONLY) 50 ML IV ONE (10:38)
--- NOTE | 2020-07-29 10:49 | NUR ---
report give to TOM Eldridge
[2020-07-29] MEDS ORDERED: HYDROCODONE/APAP 5/325MG TABLET PO PRN (11:00)
[2020-07-29] MEDS ORDERED: ONDANSETRON HCL/PF 4 MG/2 ML VIAL IVP PRN (11:00)
[2020-07-29] MEDS ORDERED: MAGNESIUM HYDROXIDE 30 ML UDC PO PRN (11:00)
[2020-07-29] MEDS ORDERED: Z GUARD REMEDY 2 OZ OINT TP PRN (11:00)
--- NOTE | 2020-07-29 11:35 | NUR ---
PT TRANSPORTED BY [facility] TO [facility] AT THIS TIME. Jazmyn received pt.
[2020-07-29 11:42] LABS: BILIRUBIN,URINE Negative (NEGATIVE); COLOR,URINE YELLOW (YELLOW); LEUKOCYTE ESTERASE ,URINE Negative (NEGATIVE); NITRITE, URINE Negative (NEGATIVE); PH,URINE 5.5 (5.0-8.0); PROTEIN,URINE 30 mg/dl (NEGATIVE); UGLUCOSE Negative (NEGATIVE); UROBILINOGEN,URINE 0.2 EU/dL (0.2)
--- NOTE | 2020-07-29 11:42 | NUR ---
the patient is transfered to assigned room in stable condition and per policy.
--- NOTE | 2020-07-29 11:45 | NUR ---
MS ABSORBER OPERATOR NOTE RECEIVED PATIENT FROM ER. PATIENT IS STABLE, BROUGHT HIMSELF TO THE ER FOR ABDOMINAL PAIN. ABDOMEN IS DISTENDED, PATIENT STATES 6/10 PAIN. A/O X4. ON ROOM AIR - TOLERATING WELL. NO SOB OR DISTRESS NOTED. SKIN INTACT, JUST SOME BRUISING ON BOTH ARMS. PENDING PARACENTESIS. PATIENT IS NPO FOR NOW. IV ACCESS TO LEFT AC #18 - INTACT AND PATENT. SAFETY MEASURES IMPLEMENTED. CALL LIGHT WITHIN REACH. WILL CONTINUE TO MONITOR.
[2020-07-29 11:57] LABS: BACTERIA,URINE Few /HPF (None Seen); RBC,URINE 0-2 /HPF (0-2); SQUAMOUS EPITHELIAL CELL,UR Few /HPF (None Seen); WBC,URINE 0-2 /HPF (0-3)
[2020-07-29 12:36] VITALS: BP 128/74
[2020-07-29] MEDS: POTASSIUM CL. PREMIX PERIPHER. 50 ML IV SCH ×2 (15:22→16:17)
[2020-07-29 16:00] VITALS: BP 111/68
[2020-07-29] MEDS: ACETAMINOPHEN 325 MG TABLET PO PRN (16:09)
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
--- NOTE | 2020-07-29 20:00 | NUR ---
MS RN OPENING NOTE PATIENT IN BED EATING, ALERT/ORIENTED X 4. PT ABLE TO MAKE NEEDS KNOWN, NO COMPLAINTS OF PAIN AT THIS TIME. PT STABLE ON ROOM AIR, NO S/S OF DISTRESS OR SHORTNESS OF BREATH NOTED. LEFT AC #18G INTACT AND SALINE LOCKED. PATIENT IS AMBULATORY AND HAS BRP. SAFETY MEASURES IN PLACE, CALL LIGHT AND TABLE WITHIN REACH, BED LOCKED IN LOWEST POSITION, NON-SKID SOCKS ON PT. WILL CONTINUE TO MONITOR. WILL CONTINUE PLAN OF CARE
[2020-07-29 20:20] VITALS: BP 100/57
--- NOTE | 2020-07-29 23:10 | NUR ---
MS RN NOTES PATIENT REQUESTING PRN AMBIEN FOR SLEEP, MEDICATION GIVEN ORDERED. WILL CONTINUE TO MONITOR
[2020-07-29] MEDS: ZOLPIDEM TARTRATE 5 MG TABLET PO PRN (23:13)
[2020-07-30 06:17] LABS: BASOPHILS # (AUTO) 0.3 /CMM (0.0-0.2); BASOPHILS % (AUTO) 2.2 % (0.0-2.0); EOSINOPHILS % (AUTO) 4.4 % (0.0-6.0); HEMATOCRIT 40 % (39-51); HEMOGLOBIN 13.3 g/dL (13.5-17.5); LYMPHOCYTES # (AUTO) 2.5 /CMM (0.8-4.8); LYMPHOCYTES % (AUTO) 19.3 % (20.0-44.0); MEAN CORPUSCULAR HGB CONC 33 g/dl (31.0-36.0); MEAN CORPUSCULAR VOLUME 99 fL (80-96); MONOCYTES # (AUTO) 1.4 /CMM (0.1-1.30); MONOCYTES % (AUTO) 10.6 % (2.0-12.0); NEUTROPHILS # (AUTO) 8.2 /CMM (1.8-8.9); NEUTROPHILS % (AUTO) 63.5 % (43.0-81.0); PLATELET COUNT (AUTO) 245 /CMM (150-450); RED BLOOD CELL COUNT(AUTO) 4.07 MIL/uL (4.5-6.0)
--- NOTE | 2020-07-30 06:41 | NUR ---
MS RN CLOSING NOTE PATIENT SLEEPING IN BED, EASILY AWAKENED, ALERT/ORIENTED X 4. PT ABLE TO MAKE NEEDS KNOWN, NO COMPLAINTS OF PAIN AT THIS TIME. PT STABLE ON ROOM AIR, NO S/S OF DISTRESS OR SHORTNESS OF BREATH NOTED. LEFT AC #18G INTACT AND SALINE LOCKED. PATIENT IS AMBULATORY AND HAS BRP. MEDICATIONS GIVEN ORDERED AND PATIENT NEEDS MET THROUGHOUT SHIFT. SAFETY MEASURES IN PLACE, CALL LIGHT AND TABLE WITHIN REACH, BED LOCKED IN LOWEST POSITION, NON-SKID SOCKS ON PT. WILL ENDORSE TO DAY SHIFT NURSE FOR CONTINUITY OF CARE
[2020-07-30 06:44] LABS: CALCIUM, SERUM 8.5 mg/dL (8.5-10.1); CREATININE 2.9 mg/dL (0.6-1.3); MAGNESIUM 1.5 mg/dL (1.8-2.4); PHOSPHORUS 4.4 mg/dL (2.5-4.9); POTASSIUM 3.6 mmol/L (3.5-5.1)
--- NOTE | 2020-07-30 07:56 | NUR ---
STAGECRAFT TEACHER Opening Notes Med/Surg Received patient in room, resting in bed patient is alert and orientated x4. Patient is on room air and currently presents no signs or symptoms of respiratory distress. Upon assessment skin is in intact, warm and dry to touch, however patient has bruises on both arms .Patient is continent with bathroom privileges, Patient is on a 2gram sodium diet. Patient has a Left Antecubital saline lock gauge 18, which is patent. Patient's bed is in lowest position, bed is locked, upper side rails up and call light within easy reach. Will continue to monitor patient throughout shift.
[2020-07-30 08:00] VITALS: BP 115/70
[2020-07-30 11:38] LABS: BILIRUBIN,URINE NEGATIVE (NEGATIVE); COLOR,URINE YELLOW (YELLOW); LEUKOCYTE ESTERASE ,URINE NEGATIVE (NEGATIVE); NITRITE, URINE NEGATIVE (NEGATIVE); PH,URINE 5.5 (5.0-8.0); PROTEIN,URINE NEGATIVE (NEGATIVE); UGLUCOSE NEGATIVE (NEGATIVE); UROBILINOGEN,URINE 0.2 EU/dL (0.2)
[2020-07-30] MEDS: ACETAMINOPHEN 325 MG TABLET PO PRN (14:23)
[2020-07-30 16:00] VITALS: BP 118/75
[2020-07-30 18:05] VITALS: BP 115/68
[2020-07-30] MEDS: FOLIC ACID 1 MG TABLET PO SCH (18:07)
[2020-07-30] MEDS: SPIRONOLACTONE 25 MG TABLET PO SCH (18:08)
[2020-07-30] MEDS: FUROSEMIDE 20 MG TABLET PO SCH (18:08)
--- NOTE | 2020-07-30 18:27 | NUR ---
PREETHI MED SURG CLOSING NOTES: Patient is alert and orientated x4, mentation has stayed the same throughout the shift. Patient is on room air and currently presents no signs or symptoms of respiratory distress. Patient is ambulatory and goes to the restroom on his own. Patient is able to turn and reposition self and requires minimal assistance with ADL's. Patient's skin is intact, warm and dry to touch; however patient does have bruises on both arms. Patient is comfortable, resting in room and stated he is not in pain. Patient has pending AM labs for 07/31/2020 will endorse to incoming impression printer nurse. Patient is in bed, bed is in lowest position, bed is locked, upper side rails are up and call light is within easy reach. Addendum: 07/30/20 at 1834 by HANNAH SHOEMAKER LVN Patient's Saline Lock 18 Gauge on left antecubital remains patent when flushed with Normal Saline @ 1830. Addendum: 07/30/20 at 1838 by HANNAH SHOEMAKER LVN CORRECTION Patient's Saline Lock 18 Gauge on RIGHT antecubital remains patent when flushed with Normal Saline @ 1830.
--- NOTE | 2020-07-30 19:57 | NUR ---
MS RN OPENING NOTE PATIENT RESTING IN BED, ALERT/ORIENTED X 4. PT ABLE TO MAKE NEEDS KNOWN, NO COMPLAINTS OF PAIN OR DISCOMFORT AT THIS TIME. PT STABLE ON ROOM AIR, NO S/S OF DISTRESS OR SHORTNESS OF BREATH NOTED. LEFT AC #18G INTACT AND SALINE LOCKED. PATIENT IS AMBULATORY AND HAS BRP. SAFETY MEASURES IN PLACE, CALL LIGHT AND TABLE WITHIN REACH, BED LOCKED IN LOWEST POSITION, NON-SKID SOCKS ON PT. WILL CONTINUE TO MONITOR. WILL CONTINUE PLAN OF CARE
[2020-07-30 20:00] VITALS: BP 115/76
[2020-07-30] MEDS: TRAZODONE 50 MG TABLET PO SCH (22:00)
[2020-07-31 06:50] LABS: CALCIUM, SERUM 8.1 mg/dL (8.5-10.1); CREATININE 2.8 mg/dL (0.6-1.3); MAGNESIUM 1.4 mg/dL (1.8-2.4); PHOSPHORUS 4.5 mg/dL (2.5-4.9); POTASSIUM 3.5 mmol/L (3.5-5.1)
--- NOTE | 2020-07-31 07:44 | NUR ---
MS RN OPENING NOTE PATIENT IS IN BED RESTING, PATIENT IS IN NO ACUTE DISTRESS. PATIENT IS ON ROOM AIR TOLERATING WELL. SAFETY PRECAUTIONS ARE ON, BED IS LOCKED IN THE LOWEST POSITION WITH SIDE RAILS UP, CALL LIGHT WITHIN REACH. WILL CONTINUE TO MONITOR CLOSELY THROUGHOUT THE SHIFT.
[2020-07-31 08:00] VITALS: BP 121/66
[2020-07-31] MEDS: FOLIC ACID 1 MG TABLET PO SCH (09:58)
[2020-07-31] MEDS: SPIRONOLACTONE 25 MG TABLET PO SCH (09:58)
[2020-07-31] MEDS: AMLODIPINE BESYLATE 10 MG TABLET PO SCH (09:59)
[2020-07-31] MEDS: POTASSIUM CHLORIDE 20 MEQ TAB.PRT.SR PO SCH (09:59)
[2020-07-31] MEDS: FUROSEMIDE 20 MG TABLET PO SCH (09:59)
[2020-07-31] MEDS: VENLAFAXINE XR 75 MG CAP.SR.24H PO SCH (09:59)
[2020-07-31 16:00] VITALS: BP 104/67
[2020-07-31] MEDS ORDERED: ERGOCALCIFEROL (VITAMIN D 2) 50,000 UNIT CAPSULE PO SCH (17:30)
--- NOTE | 2020-07-31 18:40 | NUR ---
MS RN CLOSING NOTE PATIENT IS IN BED RESTING, PATIENT IS IN NO ACUTE DISTRESS. PATIENT IS ON ROOM AIR TOLERATING WELL. SAFETY PRECAUTIONS ARE ON, BED IS LOCKED IN THE LOWEST POSITION WITH SIDE RAILS UP, CALL LIGHT WITHIN REACH. ENDORSE PATIENT TO PRIMARY CARE MD NURSE FOR OSITO.
--- NOTE | 2020-07-31 19:58 | NUR ---
MS RN OPENING NOTE RECEIVED PT AWAKE IN BED, A/O X4. PT IS STABLE ON ROOM AIR. NO SOB OR S/S OF RESPIRATORY DISTRESS NOTED. PT IS AMBULATORY WITH BRP. NO C/O OF PAIN OR DISCOMFORT AT THIS TIME. IV ACCESS NOTED IN LEFT AC #18 SALINE-LOCKED. IV IS INTACT, PATENT, AND FLUSHING WELL. SAFETY MEASURES MAINTAINED. BED IN LOWEST LOCKED POSITION, HOB ELEVATED, SIDE RAILS UP X2. CALL LIGHT AND TABLE WITHIN REACH. WILL CONTINUE WITH PLAN OF CARE.
[2020-07-31 20:00] VITALS: BP 129/66
[2020-07-31] MEDS: ZOLPIDEM TARTRATE 5 MG TABLET PO PRN (20:38)
[2020-07-31] MEDS: TRAZODONE 50 MG TABLET PO SCH (21:24)
--- NOTE | 2020-08-01 06:28 | NUR ---
MS RN CLOSING NOTE PT IS IN BED WITH EYES CLOSED, EASILY AROUSED. A/O X4. PT IS STABLE ON ROOM AIR. NO SOB OR S/S OF RESPIRATORY DISTRESS NOTED. PT IS AMBULATORY WITH BRP. NO C/O OF PAIN OR DISCOMFORT AT THIS TIME. IV ACCESS IS INTACT, PATENT, AND FLUSHING WELL. ALL NEEDS HAVE BEEN MET. SAFETY PRECAUTIONS MAINTAINED AT ALL TIMES. BED IN LOWEST LOCKED POSITION, HOB ELEVATED, SIDE RAILS UP X2. CALL LIGHT AND TABLE WITHIN REACH. WILL ENDORSE TO ONCOMING NURSE FOR OSITO.
[2020-08-01 07:07] LABS: AFP, TUMOR MARKER 2.1 ng/mL (0.0-8.3)
--- NOTE | 2020-08-01 07:30 | NUR ---
MS RN OPENING NOTE RECEIVED PATIENT SLEEPING IN BED. EASY TO AROUSE. A/O X4. ON ROOM AIR, TOLERATING WELL. NO SOB NOTED. IN NO APPARENT DISTRESS. DENIES ANY PAIN OR DISCOMFORT AT THIS TIME. IV ACCESS ON L AC #18 G, INTACT. SAFETY MEASURES MAINTAINED. BED IN LOWEST POSITION, BRAKES LOCKED. SIDE RAILS UP X2. CALL LIGHT WITHIN REACH. WILL CONTINUE PLAN OF CARE.
[2020-08-01 08:00] VITALS: BP 128/76
[2020-08-01 08:07] LABS: CARBOHYDRATE AG 19-9 160 U/mL (0-35)
[2020-08-01 09:09] LABS: *ANA ANTI-CENTROMERE B AB <0.2 AI (0.0-0.9); *ANA ANTI-DNA(DS) AB, QN 2 IU/mL (0-9); *ANA ANTI-JO-1 <0.2 AI (0.0-0.9); *ANA ANTICHROMATIN ANTIBODY <0.2 AI (0.0-0.9); *ANA RNP ANTIBODIES 0.2 AI (0.0-0.9); *ANA SJOGREN'S ANTI-SS-A <0.2 AI (0.0-0.9); *ANA SJOGREN'S ANTI-SS-B <0.2 AI (0.0-0.9); *ANAANTI-SCLERODERMA-70 AB <0.2 AI (0.0-0.9); *ANASMITH AB <0.2 AI (0.0-0.9)
[2020-08-01] MEDS: FUROSEMIDE 20 MG TABLET PO SCH (09:17)
[2020-08-01] MEDS: FOLIC ACID 1 MG TABLET PO SCH (09:17)
[2020-08-01] MEDS: AMLODIPINE BESYLATE 10 MG TABLET PO SCH (09:17)
[2020-08-01] MEDS: POTASSIUM CHLORIDE 20 MEQ TAB.PRT.SR PO SCH (09:17)
[2020-08-01] MEDS: SPIRONOLACTONE 25 MG TABLET PO SCH (09:17)
[2020-08-01] MEDS: VENLAFAXINE XR 75 MG CAP.SR.24H PO SCH (09:17)
[2020-08-01 16:00] VITALS: BP 103/63
--- NOTE | 2020-08-01 18:09 | NUR ---
MS RN CLOSING NOTE PATIENT RESTING IN BED. A/O X4. ON ROOM AIR, TOLERATING WELL. NO SOB NOTED. NO S/S OF RESPIRATORY DISTRESS. NO REPORTS PAIN OR DISCOMFORT AT THIS TIME. IV ACCESS ON L AC #18 G, INTACT AND PATENT. ALL DUE MEDS ORDERED. ALL NEEDS HAVE BEEN MET AND ATTENDED. SAFETY MEASURES MAINTAINED. BED IN LOWEST POSITION, BRAKES LOCKED. SIDE RAILS UP X2. CALL LIGHT WITHIN REACH. WILL ENDORSE CONTINUITY OF CARE TO ONCOMING SHIFT.
[2020-08-01 20:50] VITALS: BP 109/72
[2020-08-01] MEDS: TRAZODONE 50 MG TABLET PO SCH (21:18)
[2020-08-01] MEDS: ZOLPIDEM TARTRATE 5 MG TABLET PO PRN (22:00)
[2020-08-02 07:01] LABS: BASOPHILS # (AUTO) 0.4 /CMM (0.0-0.2); BASOPHILS % (AUTO) 3.2 % (0.0-2.0); EOSINOPHILS % (AUTO) 5.2 % (0.0-6.0); HEMATOCRIT 36 % (39-51); LYMPHOCYTES # (AUTO) 2.5 /CMM (0.8-4.8); LYMPHOCYTES % (AUTO) 20.6 % (20.0-44.0); MEAN CORPUSCULAR HGB CONC 33 g/dl (31.0-36.0); MEAN CORPUSCULAR VOLUME 98 fL (80-96); NEUTROPHILS # (AUTO) 7.7 /CMM (1.8-8.9); PLATELET COUNT (AUTO) 276 /CMM (150-450); RED BLOOD CELL COUNT(AUTO) 3.66 MIL/uL (4.5-6.0); WHITE BLOOD COUNT (AUTO) 12.2 K/uL (4.3-11.0)
[2020-08-02 07:21] LABS: ALBUMIN 2.2 g/dL (3.4-5.0); BILIRUBIN,TOTAL 0.9 mg/dL (0.2-1.0); CALCIUM, SERUM 8.7 mg/dL (8.5-10.1); CREATININE 2.4 mg/dL (0.6-1.3); MAGNESIUM 1.5 mg/dL (1.8-2.4); POTASSIUM 4.5 mmol/L (3.5-5.1); TOTAL PROTEIN, SERUM 6.8 g/dL (6.4-8.2)
--- NOTE | 2020-08-02 07:30 | NUR ---
PT RECEIVED RESTING COMFORTABLY IN BED. NO S/S OR C/O PAIN OR DISTRESS NOTED. SIDE RAILS UP X2, CALL LIGHT LEFT WITHIN REACH. WILL CONTINUE PLAN OF CARE.
[2020-08-02] MEDS: FOLIC ACID 1 MG TABLET PO SCH (08:45)
[2020-08-02] MEDS: FUROSEMIDE 20 MG TABLET PO SCH (08:45)
[2020-08-02] MEDS: SPIRONOLACTONE 25 MG TABLET PO SCH (08:45)
[2020-08-02] MEDS: POTASSIUM CHLORIDE 20 MEQ TAB.PRT.SR PO SCH (08:45)
[2020-08-02] MEDS: VENLAFAXINE XR 75 MG CAP.SR.24H PO SCH (08:45)
[2020-08-02 08:46] VITALS: BP 102/61
[2020-08-02] MEDS: AMLODIPINE BESYLATE 10 MG TABLET PO SCH (08:46)
[2020-08-02] MEDS ORDERED: Magnesium 1GM/D5W 100ML PREMIX 100 ML IV SCH (12:00)
--- NOTE | 2020-08-02 16:48 | NUR ---
DISCHARGE INSTRUCTIONS GIVEN ORDERED. ENCOURAGED TO FOLLOW UP WITH PMD INSTRUCTED. ALL QUESTIONS AND CONCERNS ADDRESSED, PATIENT VERBALIZED UNDERSTANDING. MEDICATION RECONCILIATION FORM COMPLETED. COPY GIVE TO PATIENT. IV REMOVED WITH CATHETER INTACT, PRESSURE DRESSING APPLIED. PATIENT TAKEN TO VEHICLE VIA WHEELCHAIR WITH ALL PERSONAL BELONGINGS, ACCOMPANIED BY STAFF AND FAMILY MEMBER. NO DISTRESS NOTED AT TIME OF DEPARTURE.
== END 2020-08-02 16:25 | disposition home or self-care (01) | DRG 432 ==
LOC: ER 07:44 → TELE 10:20 → MED 11:29
PROVIDERS: ADMIT Nurse Practitioner Acute Care; ATTEND Nurse Practitioner Acute Care
PROC: 0W9G3ZZ Drainage of Peritoneal Cavity, Percutaneous Approach (ICD-10-PCS; principal; 2020-07-29)
DX: K74.60 Unspecified cirrhosis of liver (principal); N17.0 Acute kidney failure with tubular necrosis; E43 Unspecified severe protein-calorie malnutrition; K76.7 Hepatorenal syndrome; K85.90 Acute pancreatitis without necrosis or infection, unspecified; R18.8 Other ascites; E87.1 Hypo-osmolality and hyponatremia; D68.4 Acquired coagulation factor deficiency; E87.6 Hypokalemia; E78.5 Hyperlipidemia, unspecified; E83.42 Hypomagnesemia; F17.210 Nicotine dependence, cigarettes, uncomplicated; I10 Essential (primary) hypertension; E88.09 Other disorders of plasma-protein metabolism, not elsewhere classified; Z68.20 Body mass index [BMI] 20.0-20.9, adult; Z20.822 Contact with and (suspected) exposure to COVID-19; R78.89 Finding of other specified substances, not normally found in blood
CPT/HCPCS: 36415; 71045-TC; 76705-TC; 76942-TC; 80048-TC; 80053-TC; 80061-TC; 80076-TC; 81001; 82105; 82150-TC; 82378; 83690-TC; 83735-TC; 84100-TC; 85025-TC; 85610-TC; 85730-TC; 86225; 86235; 86301; 86431-TC; 86706; 86803; 87040-TC; 87081-TC; 87340; 89051-TC; 97116-TC; 97530-TC; C9803; G0378; J0696; J3475; J3480; J7050; J7060

== ENCOUNTER 2020-08-14 09:47 | Emergency (ER) | payer MEDICARE, OTHER ==
[~2020-08-14] VITALS: Ht 157.5 cm; Wt 54.4 kg
--- NOTE | 2020-08-14 10:10 | NUR ---
c/o abdominal distension, last paracenthesis 2 weeks ago, no SOB. Patient a/ox4, breathing even and unlabored, no sob noted, needs attended, assisted to bed.
--- NOTE | 2020-08-14 10:25 | NUR ---
dr. bacon at bedside for eval
--- NOTE | 2020-08-14 10:30 | NUR ---
Patient is requesting for paracentesis, refused to stay in the hospital.
[2020-08-14 10:57] LABS: BASOPHILS # (AUTO) 0.1 K/uL (0.0-0.2); BASOPHILS % (AUTO) 0.7 % (0.0-2.0); EOSINOPHILS % (AUTO) 1.3 % (0.0-6.0); HEMATOCRIT 39 % (39-51); HEMOGLOBIN 12.8 g/dL (13.5-17.5); LYMPHOCYTES # (AUTO) 1.7 K/uL (0.8-4.8); LYMPHOCYTES % (AUTO) 16.1 % (20.0-44.0); MEAN CORPUSCULAR HGB CONC 33 g/dl (31.0-36.0); MEAN CORPUSCULAR VOLUME 97 fL (80-96); MONOCYTES # (AUTO) 0.9 K/uL (0.1-1.30); MONOCYTES % (AUTO) 8.5 % (2.0-12.0); NEUTROPHILS # (AUTO) 7.7 K/uL (1.8-8.9); NEUTROPHILS % (AUTO) 73.4 % (43.0-81.0); PLATELET COUNT (AUTO) 273 K/uL (150-450); RED BLOOD CELL COUNT(AUTO) 4.03 MIL/uL (4.5-6.0); WHITE BLOOD COUNT (AUTO) 10.5 K/uL (4.3-11.0)
[2020-08-14 11:07] LABS: CALCIUM, SERUM 8.9 mg/dL (8.5-10.1); CREATININE 2.7 mg/dL (0.6-1.3); POTASSIUM 4.2 mmol/L (3.5-5.1)
--- NOTE | 2020-08-14 11:43 | NUR ---
RADIOLOGIST AT BEDSIDE FOR PARACENTESIS.
--- NOTE | 2020-08-14 12:26 | NUR ---
PATIENT A/OX4, TOLERATED PROCEDURE WELL, NO S/SX OF BLEEDING FROM NEEDLE SITE. NEEDS ATTENDED, KEPT COMFORTABLE.
--- NOTE | 2020-08-14 12:29 | NUR ---
Patient a/ox4, breathing even and unlabored, paracentesis done,. Patient discharged to home in stable condition. Written and verbal after care instructions given. Patient verbalizes understanding of instruction.
[2020-08-14 12:41] VITALS: BP 130/90
== END 2020-08-14 12:41 | disposition home or self-care (01) ==
LOC: ER 10:15
DX: K74.60 Unspecified cirrhosis of liver (principal); R18.8 Other ascites; I10 Essential (primary) hypertension; Z79.899 Other long term (current) drug therapy
CPT/HCPCS: 36415; 76942-TC; 80048-TC; 85025-TC; 85730-TC

== ENCOUNTER 2020-08-25 09:59 | Emergency (ER) | payer MEDICARE, OTHER ==
[~2020-08-25] VITALS: Ht 160 cm; Wt 52.2 kg
--- NOTE | 2020-08-25 10:35 | NUR ---
ER BED 4, C/O ABDOMINAL SWELLING, SEEN BY DR ROSS AND ORDERED ULTRASOUND GUIDED PARACENTESIS
--- NOTE | 2020-08-25 10:39 | NUR ---
CALLED LAB AND F/U BLOOD DRAW
[2020-08-25 10:50] LABS: BASOPHILS # (AUTO) 0.2 K/uL (0.0-0.2); BASOPHILS % (AUTO) 1.4 % (0.0-2.0); EOSINOPHILS % (AUTO) 1.5 % (0.0-6.0); HEMATOCRIT 33 % (39-51); HEMOGLOBIN 10.9 g/dL (13.5-17.5); LYMPHOCYTES # (AUTO) 2.3 K/uL (0.8-4.8); LYMPHOCYTES % (AUTO) 17.3 % (20.0-44.0); MEAN CORPUSCULAR HGB CONC 33 g/dl (31.0-36.0); MEAN CORPUSCULAR VOLUME 96 fL (80-96); MONOCYTES # (AUTO) 1.3 K/uL (0.1-1.30); MONOCYTES % (AUTO) 9.5 % (2.0-12.0); NEUTROPHILS # (AUTO) 9.3 K/uL (1.8-8.9); NEUTROPHILS % (AUTO) 70.3 % (43.0-81.0); PLATELET COUNT (AUTO) 341 K/uL (150-450); RED BLOOD CELL COUNT(AUTO) 3.42 MIL/uL (4.5-6.0); WHITE BLOOD COUNT (AUTO) 13.2 K/uL (4.3-11.0)
[2020-08-25 10:55] LABS: CALCIUM, SERUM 8.6 mg/dL (8.5-10.1); CREATININE 2.1 mg/dL (0.6-1.3); POTASSIUM 3.9 mmol/L (3.5-5.1)
[2020-08-25 11:01] LABS: ALBUMIN 2.4 g/dL (3.4-5.0); BILIRUBIN,TOTAL 0.7 mg/dL (0.2-1.0); TOTAL PROTEIN, SERUM 7.2 g/dL (6.4-8.2)
[2020-08-25] MEDS: ACETAMINOPHEN 325 MG TABLET PO ONE (11:30)
[2020-08-25] MEDS ORDERED: ACETAMINOPHEN 325 MG TABLET ONE (11:33)
--- NOTE | 2020-08-25 12:09 | NUR ---
RADIOLOGY AT BEDSIDE
--- NOTE | 2020-08-25 12:50 | NUR ---
PARACENTESIS DONE, PATIENT TOLERATED PROCEDURE WELL, REEVALUATED BY DR ROSS
[2020-08-25] MEDS ORDERED: diphenhydrAMINE HCL 25 MG CAPSULE ONE (12:59)
[2020-08-25] MEDS: DIPHENHYDRAMINE HCL 12.5 MG/5 ML UDC PO ONE (13:00)
[2020-08-25 13:26] VITALS: BP 107/70
== END 2020-08-25 13:27 | disposition home or self-care (01) ==
LOC: ER 10:07
DX: K70.31 Alcoholic cirrhosis of liver with ascites (principal); R14.0 Abdominal distension (gaseous); I12.9 Hypertensive chronic kidney disease with stage 1 through stage 4 chronic kidney disease, or unspecified chronic kidney disease; N18.9 Chronic kidney disease, unspecified; F17.200 Nicotine dependence, unspecified, uncomplicated; Z79.899 Other long term (current) drug therapy
CPT/HCPCS: 36415; 49083; 80053; 85025; 85610; 99285; Q0163; 76942-TC

== ENCOUNTER 2020-09-08 14:24 | Emergency (ER) | payer MEDICARE, OTHER ==
[~2020-09-08] VITALS: Ht 170.2 cm; Wt 74.8 kg
--- NOTE | 2020-09-08 14:45 | NUR ---
PATIENT SIGNED CONSENT FORM FOR PARACENTESIS. ATHLETE MANAGER AT BEDSIDE.
[2020-09-08 15:06] LABS: BASOPHILS # (AUTO) 0.1 K/uL (0.0-0.2); BASOPHILS % (AUTO) 1.3 % (0.0-2.0); EOSINOPHILS % (AUTO) 1.9 % (0.0-6.0); HEMATOCRIT 32 % (39-51); HEMOGLOBIN 10.6 g/dL (13.5-17.5); LYMPHOCYTES % (AUTO) 18.4 % (20.0-44.0); MEAN CORPUSCULAR HGB CONC 33 g/dl (31.0-36.0); MEAN CORPUSCULAR VOLUME 98 fL (80-96); MONOCYTES # (AUTO) 1.2 K/uL (0.1-1.30); MONOCYTES % (AUTO) 11.1 % (2.0-12.0); NEUTROPHILS # (AUTO) 7.2 K/uL (1.8-8.9); NEUTROPHILS % (AUTO) 67.3 % (43.0-81.0); PLATELET COUNT (AUTO) 256 K/uL (150-450); RED BLOOD CELL COUNT(AUTO) 3.25 MIL/uL (4.5-6.0); WHITE BLOOD COUNT (AUTO) 10.6 K/uL (4.3-11.0)
[2020-09-08 15:29] LABS: CALCIUM, SERUM 8.5 mg/dL (8.5-10.1); CREATININE 2.6 mg/dL (0.6-1.3); POTASSIUM 4.3 mmol/L (3.5-5.1)
[2020-09-08 15:38] LABS: ALBUMIN 2.1 g/dL (3.4-5.0); BILIRUBIN,DIRECT 0.2 mg/dL (0.0-0.2); BILIRUBIN,TOTAL 0.5 mg/dL (0.2-1.0); TOTAL PROTEIN, SERUM 6.7 g/dL (6.4-8.2)
[2020-09-08] MEDS ORDERED: ACETAMINOPHEN 325 MG TABLET ONE (15:38)
[2020-09-08] MEDS: ACETAMINOPHEN 325 MG TABLET PO ONE (15:45)
--- NOTE | 2020-09-08 16:15 | NUR ---
RADIOLOGIST AT BEDSIDE FOR PARACENTHESIS.
--- NOTE | 2020-09-08 16:34 | NUR ---
COMPLETED PARACENTESIS, REMOVED 5175ML OF FLUIDS. PATIENT TOLERATED WELL. PATIENT'S VSS.
--- NOTE | 2020-09-08 16:42 | NUR ---
Patient a/ox4. breathing even and unlabored, no sob noted. Needs attended. Patient discharged to home in stable condition. Written and verbal after care instructions given. Patient verbalizes understanding of instruction. Patient assisted via wheelchair to car.
[2020-09-08 16:59] VITALS: BP 124/74
== END 2020-09-08 16:59 | disposition home or self-care (01) ==
LOC: ER 14:31
DX: K74.60 Unspecified cirrhosis of liver (principal); R18.8 Other ascites; F17.200 Nicotine dependence, unspecified, uncomplicated; I12.9 Hypertensive chronic kidney disease with stage 1 through stage 4 chronic kidney disease, or unspecified chronic kidney disease; N18.9 Chronic kidney disease, unspecified; Z79.899 Other long term (current) drug therapy
CPT/HCPCS: 36415; 76942-TC; 80048-TC; 80076-TC; 85025-TC; 85730-TC

== ENCOUNTER 2020-09-17 09:05 | Emergency (ER) | payer MEDICARE, OTHER ==
[~2020-09-17] VITALS: Ht 152.4 cm; Wt 55.3 kg
--- NOTE | 2020-09-17 09:13 | NUR ---
Patient camein to the er c/o abd discomfort and distention, last paracenthesis 10 days ago. On room air, breathing evenly and unlabored. Kept comfortable, will continue to monitor accordingly.
[2020-09-17 09:36] VITALS: BP 110/77
--- NOTE | 2020-09-17 09:36 | NUR ---
Patient discharged to home in stable condition. Written and verbal after care instructions given. Patient verbalizes understanding of instruction.
== END 2020-09-17 09:36 | disposition home or self-care (01) ==
LOC: ER 09:10
DX: K70.31 Alcoholic cirrhosis of liver with ascites (principal); R14.0 Abdominal distension (gaseous); I10 Essential (primary) hypertension; F17.200 Nicotine dependence, unspecified, uncomplicated; Z79.899 Other long term (current) drug therapy

== ENCOUNTER 2020-09-18 09:47 | Emergency (ER) | payer MEDICARE, OTHER ==
[~2020-09-18] VITALS: Ht 157.5 cm; Wt 54.4 kg
--- NOTE | 2020-09-18 10:32 | NUR ---
PRODUCTION EXPERT AT BEDSIDE FOR BLOOD DRAW
[2020-09-18 10:48] LABS: BASOPHILS # (AUTO) 0.2 K/uL (0.0-0.2); BASOPHILS % (AUTO) 1.4 % (0.0-2.0); HEMATOCRIT 34 % (39-51); HEMOGLOBIN 11.1 g/dL (13.5-17.5); LYMPHOCYTES # (AUTO) 2.1 K/uL (0.8-4.8); LYMPHOCYTES % (AUTO) 19.6 % (20.0-44.0); MEAN CORPUSCULAR HGB CONC 33 g/dl (31.0-36.0); MEAN CORPUSCULAR VOLUME 98 fL (80-96); MONOCYTES # (AUTO) 1.3 K/uL (0.1-1.30); MONOCYTES % (AUTO) 12.2 % (2.0-12.0); NEUTROPHILS % (AUTO) 64.8 % (43.0-81.0); PLATELET COUNT (AUTO) 359 K/uL (150-450); RED BLOOD CELL COUNT(AUTO) 3.44 MIL/uL (4.5-6.0); WHITE BLOOD COUNT (AUTO) 10.8 K/uL (4.3-11.0)
[2020-09-18 10:59] LABS: CALCIUM, SERUM 8.4 mg/dL (8.5-10.1); CREATININE 2.7 mg/dL (0.6-1.3); POTASSIUM 4.3 mmol/L (3.5-5.1)
--- NOTE | 2020-09-18 11:38 | NUR ---
CONSENTS SIGNED BY PATIENT FOR PARACENTESIS,
--- NOTE | 2020-09-18 12:31 | NUR ---
REMOVED APPROX. 4400ML OF FLUIDS. PATIENT REFUSING TO HAVE VSS RECHECKED. EXPLAINED RISKS AND BENEFITS. PATIENT A/OX4, AMBULATORY WITH STEADY GAIT. BREATHING EVEN AND UNLABORED, DENIES PAIN AT THIS TIME. NO S/SX OF BLEEDING AT THE NEEDLE SITE.
--- NOTE | 2020-09-18 12:40 | NUR ---
Patient a/ox4, ambulatory with steady gait. No distress noted. Patient discharged to home in stable condition. Written and verbal after care instructions given. Patient verbalizes understanding of instruction.
[2020-09-18 12:58] VITALS: BP 135/86
== END 2020-09-18 12:40 | disposition home or self-care (01) ==
LOC: ER 09:49
DX: K70.31 Alcoholic cirrhosis of liver with ascites (principal); I10 Essential (primary) hypertension; F17.200 Nicotine dependence, unspecified, uncomplicated; Z79.899 Other long term (current) drug therapy
CPT/HCPCS: 36415; 76942-TC; 80048-TC; 85025-TC; 85730-TC

== ENCOUNTER 2020-09-28 07:17 | Emergency (ER) | payer MEDICARE, OTHER ==
[~2020-09-28] VITALS: Ht 157.5 cm; Wt 56.7 kg
--- NOTE | 2020-09-28 07:17 | NUR ---
PT BIB SELF C/O ABDOMINAL DISTENSION "FOR POSSIBLE PARACENTESIS" PT IS AAOX4, NOT IN RESPIRATORY DISTRESS, V/S STABLE, KEPT RESTED AND COMFORTABLE. WILL CONTINUE TO MONITOR.
--- NOTE | 2020-09-28 07:33 | NUR ---
AT BEDSIDE FOR EVAL.
--- NOTE | 2020-09-28 08:00 | NUR ---
PT REFUSED BLOOD DRAW.
--- NOTE | 2020-09-28 11:02 | NUR ---
AT BEDSIDE FOR PARACENTESIS.
--- NOTE | 2020-09-28 11:25 | NUR ---
Patient discharged to home in stable condition. Written and verbal after care instructions given. Patient verbalizes understanding of instruction.
[2020-09-28 11:26] VITALS: BP 121/76
== END 2020-09-28 11:26 | disposition home or self-care (01) ==
LOC: ER 07:20
DX: K74.69 Other cirrhosis of liver (principal); R14.0 Abdominal distension (gaseous); R18.8 Other ascites; I10 Essential (primary) hypertension; F10.10 Alcohol abuse, uncomplicated; F17.200 Nicotine dependence, unspecified, uncomplicated; Z79.899 Other long term (current) drug therapy; Z98.890 Other specified postprocedural states
CPT/HCPCS: 76942-TC

== ENCOUNTER 2020-10-02 08:28 | Emergency (ER) | payer MEDICARE, OTHER ==
[~2020-10-02] VITALS: Ht 154.9 cm; Wt 55.3 kg
[2020-10-02 08:33] VITALS: BP 124/77
--- NOTE | 2020-10-02 08:35 | NUR ---
PT SIGNED CONSENT FOR ULTRASOUND GUIDED PARACENTESIS.
--- NOTE | 2020-10-02 08:39 | NUR ---
AT BEDSIDE FOR BLOOD DRAW.
[2020-10-02 09:05] LABS: BASOPHILS # (AUTO) 0.1 K/uL (0.0-0.2); EOSINOPHILS % (AUTO) 2.8 % (0.0-6.0); HEMATOCRIT 36 % (39-51); HEMOGLOBIN 11.6 g/dL (13.5-17.5); LYMPHOCYTES # (AUTO) 2.1 K/uL (0.8-4.8); LYMPHOCYTES % (AUTO) 19.1 % (20.0-44.0); MEAN CORPUSCULAR HGB CONC 33 g/dl (31.0-36.0); MEAN CORPUSCULAR VOLUME 97 fL (80-96); MONOCYTES # (AUTO) 1.2 K/uL (0.1-1.30); MONOCYTES % (AUTO) 10.8 % (2.0-12.0); NEUTROPHILS # (AUTO) 7.3 K/uL (1.8-8.9); NEUTROPHILS % (AUTO) 66.3 % (43.0-81.0); PLATELET COUNT (AUTO) 279 K/uL (150-450); RED BLOOD CELL COUNT(AUTO) 3.65 MIL/uL (4.5-6.0)
--- NOTE | 2020-10-02 10:20 | NUR ---
6 LITER OUTPUT FROM PARACENTHESIS
== END 2020-10-02 10:36 | disposition home or self-care (01) ==
LOC: ER 08:28
DX: K70.31 Alcoholic cirrhosis of liver with ascites (principal); R14.0 Abdominal distension (gaseous); I10 Essential (primary) hypertension; F17.200 Nicotine dependence, unspecified, uncomplicated; Z79.899 Other long term (current) drug therapy
CPT/HCPCS: 36415; 76942-TC; 85025-TC; 85730-TC

== ENCOUNTER 2020-10-09 08:02 | Emergency (ER) | payer MEDICARE, OTHER ==
[~2020-10-09] VITALS: Ht 154.9 cm; Wt 57.6 kg
--- NOTE | 2020-10-09 08:26 | NUR ---
BIBS for abd distension, last paracenthesis a week ago. The patient c/o abdominal discomfort due to distensiton and rates discomfort 2/10. In room air and denies SOB. Respiration regular and unlabored. Will continue to monitor the patient.
[2020-10-09 08:32] LABS: BASOPHILS # (AUTO) 0.2 K/uL (0.0-0.2); BASOPHILS % (AUTO) 1.3 % (0.0-2.0); EOSINOPHILS % (AUTO) 2.5 % (0.0-6.0); HEMATOCRIT 35 % (39-51); HEMOGLOBIN 11.6 g/dL (13.5-17.5); LYMPHOCYTES # (AUTO) 2.1 K/uL (0.8-4.8); MEAN CORPUSCULAR HGB CONC 33 g/dl (31.0-36.0); MEAN CORPUSCULAR VOLUME 97 fL (80-96); MONOCYTES # (AUTO) 1.4 K/uL (0.1-1.30); MONOCYTES % (AUTO) 11.4 % (2.0-12.0); NEUTROPHILS % (AUTO) 66.8 % (43.0-81.0); PLATELET COUNT (AUTO) 270 K/uL (150-450); RED BLOOD CELL COUNT(AUTO) 3.62 MIL/uL (4.5-6.0)
--- NOTE | 2020-10-09 09:30 | NUR ---
paracenthesis done per order. the patient tolerated the procedure well.
[2020-10-09 09:35] VITALS: BP 119/78
--- NOTE | 2020-10-09 09:35 | NUR ---
Patient discharged to home in stable condition. Written and verbal after care instructions given. Patient verbalizes understanding of instruction.
== END 2020-10-09 09:36 | disposition home or self-care (01) ==
LOC: ER 08:02
DX: K70.31 Alcoholic cirrhosis of liver with ascites (principal); I10 Essential (primary) hypertension; F17.200 Nicotine dependence, unspecified, uncomplicated; Z79.899 Other long term (current) drug therapy
CPT/HCPCS: 36415; 76942-TC; 85025-TC; 85730-TC

== ENCOUNTER 2020-10-16 07:28 | Emergency (ER) | payer MEDICARE, OTHER ==
[~2020-10-16] VITALS: Ht 154.9 cm; Wt 56.2 kg
--- NOTE | 2020-10-16 07:37 | NUR ---
TO ER BED 4, C/O ABDOMINAL DISTENTION, MD PATY AT BEDSIDE
--- NOTE | 2020-10-16 07:55 | NUR ---
LAB AT BEDSIDE FOR BLOOD DRAW
[2020-10-16 08:12] LABS: BASOPHILS # (AUTO) 0.2 K/uL (0.0-0.2); BASOPHILS % (AUTO) 1.4 % (0.0-2.0); EOSINOPHILS % (AUTO) 2.6 % (0.0-6.0); HEMATOCRIT 37 % (39-51); LYMPHOCYTES % (AUTO) 17.8 % (20.0-44.0); MEAN CORPUSCULAR HGB CONC 33 g/dl (31.0-36.0); MEAN CORPUSCULAR VOLUME 96 fL (80-96); MONOCYTES # (AUTO) 1.5 K/uL (0.1-1.30); MONOCYTES % (AUTO) 13.3 % (2.0-12.0); NEUTROPHILS # (AUTO) 7.2 K/uL (1.8-8.9); NEUTROPHILS % (AUTO) 64.9 % (43.0-81.0); PLATELET COUNT (AUTO) 310 K/uL (150-450); RED BLOOD CELL COUNT(AUTO) 3.79 MIL/uL (4.5-6.0); WHITE BLOOD COUNT (AUTO) 11.1 K/uL (4.3-11.0)
[2020-10-16 08:21] LABS: CALCIUM, SERUM 8.7 mg/dL (8.5-10.1); CREATININE 2.5 mg/dL (0.6-1.3); POTASSIUM 4.9 mmol/L (3.5-5.1)
--- NOTE | 2020-10-16 08:42 | NUR ---
SPOKE TO GIANNA OF LAB AND REQUESTED FOR COVID ANTIGEN SWAB
--- NOTE | 2020-10-16 08:46 | NUR ---
REFUSED TO TAKE BP AT THIS TIME
--- NOTE | 2020-10-16 08:50 | NUR ---
US GUIDED PARACENTESIS ONGOING AT BEDSIDE
--- NOTE | 2020-10-16 09:23 | NUR ---
PARACENTESIS DONE, 5L OF FLUIDS TAKEN, PROCEDURES TOLERATED WELL
[2020-10-16 09:28] VITALS: BP 96/75
== END 2020-10-16 09:28 | disposition home or self-care (01) ==
LOC: ER 07:31
DX: K70.31 Alcoholic cirrhosis of liver with ascites (principal); I10 Essential (primary) hypertension; F17.200 Nicotine dependence, unspecified, uncomplicated; Z79.899 Other long term (current) drug therapy
CPT/HCPCS: 36415; 76942-TC; 80048-TC; 85025-TC; 85730-TC

== ENCOUNTER 2020-10-20 06:36 | Emergency (ER) | payer MEDICARE, OTHER ==
[~2020-10-20] VITALS: Ht 157.5 cm; Wt 60.3 kg
--- NOTE | 2020-10-20 07:02 | NUR ---
PATIENT TO ER BED 3 BIBSELF C/O "I NEED MY FLUID DRAINED, I HAVE BEEN HERE BEFORE". PATIENT HAS A DISTENDED ABDOMEN. HX OF LIVER CIRRHOSIS. PATIENT IS ALERT AND ORIENTED X4. PATIENT IS BREATHING EVENLY AND UNLABORED ON ROOM AIR. CONNECTED TO THE MONITOR.
--- NOTE | 2020-10-20 07:05 | NUR ---
PT PLACED ON PULSE OX & BP
[2020-10-20 07:07] VITALS: BP 116/83
[2020-10-20 08:16] LABS: BASOPHILS # (AUTO) 0.2 K/uL (0.0-0.2); BASOPHILS % (AUTO) 1.5 % (0.0-2.0); EOSINOPHILS % (AUTO) 2.3 % (0.0-6.0); HEMATOCRIT 35 % (39-51); HEMOGLOBIN 11.7 g/dL (13.5-17.5); LYMPHOCYTES % (AUTO) 17.7 % (20.0-44.0); MEAN CORPUSCULAR HGB CONC 33 g/dl (31.0-36.0); MEAN CORPUSCULAR VOLUME 96 fL (80-96); MONOCYTES # (AUTO) 1.4 K/uL (0.1-1.30); MONOCYTES % (AUTO) 12.7 % (2.0-12.0); NEUTROPHILS # (AUTO) 7.5 K/uL (1.8-8.9); NEUTROPHILS % (AUTO) 65.8 % (43.0-81.0); PLATELET COUNT (AUTO) 373 K/uL (150-450); RED BLOOD CELL COUNT(AUTO) 3.65 MIL/uL (4.5-6.0); WHITE BLOOD COUNT (AUTO) 11.4 K/uL (4.3-11.0)
[2020-10-20 08:33] LABS: CALCIUM, SERUM 8.6 mg/dL (8.5-10.1); CREATININE 2.4 mg/dL (0.6-1.3); POTASSIUM 5.3 mmol/L (3.5-5.1)
[2020-10-20 08:40] LABS: ALBUMIN 2.1 g/dL (3.4-5.0); BILIRUBIN,TOTAL 0.2 mg/dL (0.2-1.0); TOTAL PROTEIN, SERUM 6.9 g/dL (6.4-8.2)
--- NOTE | 2020-10-20 08:41 | NUR ---
IR AND ULTRASOUND AT BEDSIDE
--- NOTE | 2020-10-20 09:23 | NUR ---
Patient discharged to home in stable condition. Written and verbal after care instructions given. Patient verbalizes understanding of instruction.
== END 2020-10-20 09:23 | disposition home or self-care (01) ==
LOC: ER 06:51
DX: R18.8 Other ascites (principal); K74.69 Other cirrhosis of liver; R14.0 Abdominal distension (gaseous); I10 Essential (primary) hypertension; F17.200 Nicotine dependence, unspecified, uncomplicated; F10.10 Alcohol abuse, uncomplicated; Y90.9 Presence of alcohol in blood, level not specified; Z79.899 Other long term (current) drug therapy
CPT/HCPCS: 36415; 76942-TC; 80053-TC; 85025-TC; 85610-TC

== ENCOUNTER 2020-10-26 07:44 | Emergency (ER) | payer MEDICARE, OTHER ==
[~2020-10-26] VITALS: Ht 157.5 cm; Wt 61.2 kg
--- NOTE | 2020-10-26 07:58 | NUR ---
BIBSELF, STS I NEED TO GET MORE FLUID OUT, +ABDOMINAL DISTENTION. IN ROOM AIR AND DENIES SOB. RESPIRATION REGULAR AND UNLABORED. THE PATIENT DENIES HAVING ANY PAIN AT THIS TIME. ATTACHED TO THE MONITOR.
[2020-10-26 08:17] LABS: BASOPHILS # (AUTO) 0.1 K/uL (0.0-0.2); BASOPHILS % (AUTO) 0.8 % (0.0-2.0); EOSINOPHILS % (AUTO) 1.7 % (0.0-6.0); HEMATOCRIT 35 % (39-51); HEMOGLOBIN 11.6 g/dL (13.5-17.5); LYMPHOCYTES # (AUTO) 1.6 K/uL (0.8-4.8); LYMPHOCYTES % (AUTO) 15.9 % (20.0-44.0); MEAN CORPUSCULAR HGB CONC 33 g/dl (31.0-36.0); MEAN CORPUSCULAR VOLUME 95 fL (80-96); MONOCYTES # (AUTO) 1.2 K/uL (0.1-1.30); MONOCYTES % (AUTO) 11.4 % (2.0-12.0); NEUTROPHILS # (AUTO) 7.3 K/uL (1.8-8.9); NEUTROPHILS % (AUTO) 70.2 % (43.0-81.0); PLATELET COUNT (AUTO) 366 K/uL (150-450); RED BLOOD CELL COUNT(AUTO) 3.67 MIL/uL (4.5-6.0); WHITE BLOOD COUNT (AUTO) 10.3 K/uL (4.3-11.0)
[2020-10-26 08:18] LABS: CALCIUM, SERUM 8.7 mg/dL (8.5-10.1); CREATININE 3.1 mg/dL (0.6-1.3); POTASSIUM 5.1 mmol/L (3.5-5.1)
[2020-10-26 08:24] LABS: ALBUMIN 1.9 g/dL (3.4-5.0); BILIRUBIN,DIRECT 0.1 mg/dL (0.0-0.2); BILIRUBIN,TOTAL 0.2 mg/dL (0.2-1.0); TOTAL PROTEIN, SERUM 6.4 g/dL (6.4-8.2)
--- NOTE | 2020-10-26 09:25 | NUR ---
DR EDWARDS AT THE BEDSIDE FOR PARACENTESIS
--- NOTE | 2020-10-26 10:04 | NUR ---
PARACENTESIS DONE WITH 5L FLUID OUT. THE PATIENT TOLERATED THE PROCEUDRE WELL. VSS. RESPIRATION REGULAR AND UNLABORED. DENIES SOB. DENIES PAIN.
[2020-10-26 10:06] VITALS: BP 118/67
--- NOTE | 2020-10-26 10:06 | NUR ---
Patient discharged to home in stable condition. Written and verbal after care instructions given. Patient verbalizes understanding of instruction.
== END 2020-10-26 10:06 | disposition home or self-care (01) ==
LOC: ER 07:47
DX: R18.8 Other ascites (principal); K74.60 Unspecified cirrhosis of liver; I10 Essential (primary) hypertension; F10.10 Alcohol abuse, uncomplicated; F17.200 Nicotine dependence, unspecified, uncomplicated; Y90.9 Presence of alcohol in blood, level not specified; Z79.899 Other long term (current) drug therapy
CPT/HCPCS: 36415; 76942-TC; 80048-TC; 80076-TC; 85025-TC; 85730-TC

== ENCOUNTER 2020-10-30 07:50 | Emergency (ER) | payer MEDICARE, OTHER ==
[~2020-10-30] VITALS: Ht 157.5 cm; Wt 56.7 kg
--- NOTE | 2020-10-30 07:58 | NUR ---
TO ER BED 3, C/O ABD DISTENTION REQUESTING PARACENTESIS, AAOX4, BREATHING EVEN AND UNLABORED
--- NOTE | 2020-10-30 08:40 | NUR ---
LAB AT BEDSIDE
--- NOTE | 2020-10-30 08:43 | NUR ---
US AT BEDSIDE
[2020-10-30 08:56] LABS: CALCIUM, SERUM 8.7 mg/dL (8.5-10.1); CREATININE 3.4 mg/dL (0.6-1.3); POTASSIUM 5.9 mmol/L (3.5-5.1)
[2020-10-30 09:02] LABS: BASOPHILS # (AUTO) 0.2 K/uL (0.0-0.2); BASOPHILS % (AUTO) 1.9 % (0.0-2.0); HEMATOCRIT 41 % (39-51); HEMOGLOBIN 13.3 g/dL (13.5-17.5); MEAN CORPUSCULAR HGB CONC 33 g/dl (31.0-36.0); MEAN CORPUSCULAR VOLUME 95 fL (80-96); MONOCYTES # (AUTO) 1.4 K/uL (0.1-1.30); MONOCYTES % (AUTO) 11.2 % (2.0-12.0); NEUTROPHILS # (AUTO) 8.3 K/uL (1.8-8.9); NEUTROPHILS % (AUTO) 68.9 % (43.0-81.0); PLATELET COUNT (AUTO) 436 K/uL (150-450); RED BLOOD CELL COUNT(AUTO) 4.28 MIL/uL (4.5-6.0)
[2020-10-30 09:24] VITALS: BP 112/76
--- NOTE | 2020-10-30 09:24 | NUR ---
Patient discharged to home in stable condition. Written and verbal after care instructions given. Patient verbalizes understanding of instruction.
== END 2020-10-30 09:24 | disposition home or self-care (01) ==
LOC: ER 07:55
DX: K70.31 Alcoholic cirrhosis of liver with ascites (principal); I10 Essential (primary) hypertension; F17.200 Nicotine dependence, unspecified, uncomplicated; Z79.899 Other long term (current) drug therapy
CPT/HCPCS: 36415; 76942-TC; 80048-TC; 85025-TC; 85730-TC

== ENCOUNTER → 2020-11-02 | Emergency (ER) | payer MEDICARE, OTHER ==
[~2020-11-02] VITALS: Ht 157.5 cm; Wt 56.7 kg
[2020-11-02 09:45] VITALS: BP 116/84
--- NOTE | 2020-11-02 09:50 | NUR ---
SEEN AND EXAMINED BY .
--- NOTE | 2020-11-02 09:55 | NUR ---
Patient discharged to home in stable condition. Written and verbal after care instructions given. Patient verbalizes understanding of instruction.
--- NOTE | 2020-11-02 09:56 | NUR ---
[facility]
== END | disposition home or self-care (01) ==
LOC: ER 09:58
DX: R14.0 Abdominal distension (gaseous) (principal); K74.60 Unspecified cirrhosis of liver; R18.8 Other ascites; I10 Essential (primary) hypertension; F10.10 Alcohol abuse, uncomplicated; F17.200 Nicotine dependence, unspecified, uncomplicated; Y90.9 Presence of alcohol in blood, level not specified; Z79.899 Other long term (current) drug therapy